=== PATIENT | female | born 1995 ===

== ENCOUNTER 2024-02-24 13:34 | Outpatient (AMB) | payer OTHER, SELFPAY ==
--- NOTE | 2024-02-24 13:41 | A.OFFPC_ITS ---
Vital Signs 02/24/24 13:42 Height 5 ft 0.5 in Weight 118 lb 6 oz BMI 22.7 BP 100/62 Blood Pressure Location Lt brachial Position Sitting Pulse 76 Pulse Source Pulse Oximeter Pulse Oximetry (%) 100 Oxygen Delivery Method Room Air Intake Visit Reasons: establish care Intake Note: Patient is a new patient here to establish care for Anxiety. Transferring care from Dr Rubalcava ([facility]). Medical records have been requested and have not received. Pt decline flu shot today. 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 Attendant Required: No Prn Physical Therapist: Not Required per policy Accompanied by: Self / Same As Patient Allergies Sulfa (Sulfonamide Antibiotics) Allergy (Intermediate, Verified 02/24/24 13:56) Hives sulfamethoxazole [From Bactrim] Allergy (Intermediate, Verified 02/24/24 13:56) Hives trimethoprim [From Bactrim] Allergy (Intermediate, Verified 02/24/24 13:56) Hives Medication List - Last Reconciled 02/24/24 by Awilda Sanchez PA-C No Known Home Meds Tobacco use date assessed: 02/24/24 Dental Screening Dental Screen Date: 02/24/24 Did you have a dental visit in the last 12 months?: Yes Did you have a dental problem in the last 6 months where you did not have access to dental care?: No Was dental information given to patient?: Patient has dentist HPI establish care HPI Details 28-year-old female coming to the office for the 1st time. Patient was previously being seen by [facility] and we will last seen in 2022. She follows with Siria [facility]liff for routine gynecological care and has been up-to-date on her Pap smears and has a history of abnormal Pap smears. She has a history of depression anxiety and has previously had a trach counselor in the past which he did not find helpful. She has tried sertraline, Wellbutrin, citalopram in the past but did not find these medications helpful or did not like the side effects. She feels her depression and anxiety we will affect her relationships and her work and would like to try something for her symptoms. She also mentions having an issue with her toenail after using acrylic nails. [facility] Surgical History History of gastric surgery History of 2 sections Family History Maternal Grandfather Leukemia Social History Housing: Apartment Alcohol intake: current Alcohol intake frequency: holidays/special occasions only Patient Tobacco Use Status: Never used Tobacco e-Cigarette/Vaping Use: Never Used Second Hand Smoke Exposure: No service: No Current occupational status: employed Current occupation: [employer] Cognitive needs: No Hearing needs: No Vision needs: Yes (Glasses) Female Reproductive History Menstrual control method: none Total pregnancies: 2 Full term: 2 History of abnormal pap smear: Yes Questionnaire PHQ-9 Over the last 2 weeks, how often have you been bothered by any of the following problems? 1. Little interest or pleasure in doing things: several days 2. Feeling down, depressed, or hopeless: several days 3. Trouble falling or staying asleep, or sleeping too much: more than half the days 4. Feeling tired or having little energy: several days 5. Poor appetite or overeating: not at all 6. Feeling bad about yourself - or that you are a failure or have let yourself or your family down: several days 7. Trouble concentrating on things, such as reading the newspaper or watching television: more than half the days 8. Moving or speaking so slowly that other people could have noticed. Or the opposite - being so fidgety or restless that you have been moving around a lot more than usual: not at all 9. Thoughts that you would be better off or of hurting yourself in some way: not at all Total score: 8 Depression Screening Interpretation: Positive Depression Screening Follow-up: Existing condition and New Medication prescribed Depression Screening Done: Yes Source: Developed by Drs. Jay Vergara, Chante Bhat, Bart Spangler and colleagues, with an educational ansley from [employer]. Thrive Questionnaire Date Thrive assessed: 02/24/24 I am a: Patient What is your living situation today?: I have a steady place to live Within the past 12 months, did the food you bought not last and you didn't have the money to get more?: Never true Within the past 12 months, did you worry whether your food would run out before you got money to buy more?: Never true Do you have trouble paying for medicines?: No Do you have trouble getting transportation to medical appointments?: No Do you have trouble paying your heating and electricity bill?: No Do you have trouble taking care of your child, family member or friend?: No Do you have trouble with day-to-day activities such as bathing, preparing meals, shopping, managing finances, etc.?: No Are you currently unemployed and looking for a job?: No Are you interested in more education?: Yes Please select the resources that you would like help with: None Currently or been in a relationship where the following occur: I choose not to answer THRIVE Score: 0 AUDIT C Alcohol Use Questionnaire (AUDIT-C) 1. How often do you have a drink containing alcohol?: Monthly or less 2. How many drinks containing alcohol do you have on a typical day when you are drinking?: 1 or 2 3. How often do you have six or more drinks on one occasion?: Never Total Score: 1 BARBARA-7 AMB Questionnaire BARBARA-7 Date BARBARA - 7 assessed: 02/24/24 Feeling nervous, anxious, or on edge: 1 = Several days Not being able to stop or control worryin = Several days Worrying too much about different things: 1 = Several days Trouble relaxin = Not at all Being so restless that it is hard to sit still: 0 = Not at all Becoming easily annoyed or irritable: 1 = Several days Feeling afraid as if something awful might happen: 0 = Not at all Total BARBARA-7 score (0-4 normal; 5-9 mild; 10-14 moderate; 15-21 severe): 4 Source: Developed by Drs. Jay Vergara, Chante Bhat, Bart Spangler and colleagues, with an educational ansley from [employer]. BARBARA-7 Assessment Billing BARBARA-7 Assessment Tool: BARBARA-7 Assessment 12812 Review of Systems Const Denies body aches, Denies chills, Denies fever(s), Denies headache(s) and Denies poor appetite Eyes Reports no additional complaints and Reports requires corrective lenses ENT Denies dysphagia, Denies dizziness, Denies headache(s) and Denies odynophagia Card Denies chest pain, Denies syncope, Denies edema, Denies irregular heart rhythm, Denies lightheadedness and Denies dyspnea Resp Denies cough and Denies dyspnea GI Denies abdominal pain, Denies constipation, Denies dysphagia, Denies diarrhea, Denies nausea, Denies odynophagia and Denies vomiting Reports no additional complaints Musc Reports no additional complaints and Denies abnormal gait Skin/Breast Reports system reviewed and no additional complaints, except as documented Neuro Denies abnormal gait, Denies dizziness, Denies syncope and Denies headache(s) Psych Reports no additional complaints Physical exam (Primary Care) Vital Signs: Last Vital Signs Pulse 76 02/24/24 13:42 BP 100/62 02/24/24 13:42 Pulse Ox 100 02/24/24 13:42 Oxygen Delivery Method Room Air 02/24/24 13:42 BMI result Body Mass Index 22.7 Tobacco/Smoking Status: Tobacco use Status Tobacco use date assessed 02/24/24 02/24/24 13:47 Patient Tobacco Use Status Never used Tobacco 02/24/24 13:50 e-Cigarette/Vaping Use Never Used 02/24/24 13:50 PHQ-9: PHQ-9 Score PHQ-9: Total score 8 02/24/24 14:01 Depression Screening Interpretation: Positive Depression Screening Follow-up: Existing condition and New Medication prescribed Thrive Assessment: Date of Thrive Assessment Date Thrive assessed 02/24/24 02/24/24 13:47 Currently or been in a relationship where the following occur: I choose not to answer Const General: cooperative, healthy appearing, comfortable and no acute distress Orientation/consciousness: patient oriented x3 HENMT Head: Yes normocephalic Ears: hearing grossly normal bilaterally General nose exam: Normal external nose present Eyes General: appearance normal, both eyes and all related structures Conjunctivae: conjunctivae normal Neck Neck: Yes full ROM and Yes no lymphadenopathy Resp Effort & Inspection: normal respiratory effort Auscultation: clear to auscultation bilaterally, no crackles, no rales, no rhonchi and no wheezes Cardio Rate: regular rate Rhythm: regular rhythm Skin General skin exam: no rashes or lesions noted Neuro General: patient oriented x3 Gait exam (Neuro): Normal gait present Extrem General: Yes normal to inspection, Yes full ROM and No edema Psych Affect: normal affect Attitude: cooperative Insight: Good insight present (Psych) Judgement: Good judgement present (Psych) Coding Level of Care Code New Pt Level 4 (82952) Diagnoses Anxiety F41.9 Depression F32.A Toenail deformity L60.8 Abnormal Pap smear of cervix R87.619 Additional Codes BARBARA-7 Assessment Billing - BARBARA-7 Assessment Tool: BARBARA-7 Assessment 91655 ([id number]) Assessment & Plan Assessment & Plan (1) Anxiety: Code(s): F41.9 - Anxiety disorder, unspecified Category: Medical Plan: Patient has history of anxiety and depression declining counseling at this time would like to try a medication the avoid SSRIs. We will try trazodone nightly f or anxiety and depression as well as sleep. Follow up in 3 months (2) Depression: Code(s): F32.A - Depression, unspecified Category: Medical Plan: Patient has history of anxiety and depression declining counseling at this time would like to try a medication the avoid SSRIs. We will try trazodone nightly for anxiety and depression as well as sleep. Follow up in 3 months (3) Toenail deformity: Code(s): L60.8 - Other nail disorders Category: Medical Plan: Toenail does not look infected at this time and no evidence of fungal infection. Continue to monitor for now. (4) Abnormal Pap smear of cervix: Code(s): R87.619 - Unspecified abnormal cytological findings in specimens from cervix uteri Category: Medical Plan: Patient has a history of abnormal Pap smears we will request results from [facility] and continue to follow with gynecology. Plan Ordered for updated blood work and we will see patient in 3 months for annual physical. This note was constructed using voice recognition software. While every effort has been made to ensure accuracy and inside sales coordinator, still areas may have been included sometimes these areas may affect the content or meeting of the given symptoms. Total time spent caring for the patient today was 30 minutes. This includes time spent before the visit reviewing the chart, time spent during the visit, and time spent after the visit and documentation. Orders: Orders Comprehensive Met. Panel Today Z00.00 - Encounter for general adult medical examination without abnormal findings Complete Blood Count Auto Diff Today Z00.00 - Encounter for general adult medical examination without abnormal findings TSH reflex Free T4 Today Z00.00 - Encounter for general adult medical examination without abnormal findings Free T4 (Free Thyroxine) Today Z00.00 - Encounter for general adult medical examination without abnormal findings Vitamin B12 and Folate Today Z00.00 - Encounter for general adult medical examination without abnormal findings Vitamin D 25-OH Total Today Z00.00 - Encounter for general adult medical exa mination without abnormal findings Lipid Panel Today E78.00 - Pure hypercholesterolemia, unspecified Medications: New trazodone 50 mg PO BEDTIME 30 tabs 2RF
[2024-02-24 13:42] VITALS: BP 100/62; PULSE 76; O2SAT 100; BMI 22.7
== END 2024-02-24 14:15 | disposition home or self-care (01) ==
DX: F41.9 Anxiety disorder, unspecified (principal); F32.A Depression, unspecified; L60.8 Other nail disorders; R87.619 Unspecified abnormal cytological findings in specimens from cervix uteri

== ENCOUNTER → 2024-02-24 13:34 | Outpatient (BNVA) | payer OTHER, SELFPAY | DX: F41.9 Anxiety disorder, unspecified (principal); F32.A Depression, unspecified; L60.8 Other nail disorders; R87.619 Unspecified abnormal cytological findings in specimens from cervix uteri | CPT/HCPCS: 96127 ==

== ENCOUNTER 2024-03-09 08:28 | Outpatient (REF) | payer OTHER, SELFPAY ==
[2024-03-09 10:18] LABS: MANUAL DIFF FLAG NO
[2024-03-09 10:25] LABS: Basophils Percent Auto 0.5 % (0-2); Eosinophils Absolute Auto 0.3 X10*3/uL (0.0-0.4); Hematocrit 39.2 % (37.0-47.0); Hemoglobin 13.7 g/dl (12.0-16.0); Imm Gran Abs Auto 0.02 X10*3/uL (0.00-0.03); Imm Gran Pct Auto 0.3 % (0.0-0.4); Lymphocytes Absolute Auto 1.9 X10*3/uL (1.2-4.9); Lymphocytes Percent Auto 29.3 % (20-40); Mean Corpuscular HGB Conc 34.9 g/dl (31.0-35.0); Mean Corpuscular Volume 91.6 fL (80.0-98.0); Mean Platelet Volume 11.5 fL (9.4-12.3); Monocytes Absolute Auto 0.3 X10*3/uL (0.1-1.2); Neutrophils Percent Auto 61.9 % (45-73); Platelet Count 287 X10*3/uL (160-400); Red Blood Count 4.28 X10*6/uL (4.20-5.50); Red Cell Distribution Width 13.1 % (11.0-16.0); White Blood Count 6.5 X10*3/uL (4.8-10.8)
[2024-03-09 11:37] LABS: Folate 11.8 ng/mL (> or = 4.0); Vitamin B12 270 pg/mL (200-900)
[2024-03-09 14:50] LABS: Alanine Aminotransferase 11 U/L (0-31); Albumin Level 4.4 g/dL (3.5-5.0); Alkaline Phosphatase 47 U/L (39-117); Anion Gap 12 (12-20); Aspartate Amino Transferase 19 U/L (5-31); Blood Urea Nitrogen 10 mg/dL (9-16); Calcium 9.5 mg/dL (8.4-10.2); Carbon Dioxide 25 mmol/L (22-29); Chloride 107 mmol/L (96-108); Cholesterol 183 mg/dL (<200); Estimated Glomerular Filt Rate > 60; Glucose Random 77 mg/dL (60-115); HDL Cholesterol 60 mg/dL (>40); LDL Cholesterol Calculated 106 mg/dL (<100); Potassium 4.2 mmol/L (3.3-5.1); Sodium 140 mmol/L (135-145); Total Protein 7.5 g/dL (6.5-8.0); Triglycerides 87 mg/dL (<150)
[2024-03-09 15:14] LABS: Free T4 (Free Thyroxine) 0.98 ng/dL (0.71-1.85); Vitamin D 25-OH Total 21.8 ng/mL (>30)
== END 2024-03-09 08:29 | disposition home or self-care (01) ==
LOC: HO.HMGCLDS 08:28
DX: Z00.00 Encounter for general adult medical examination without abnormal findings (principal); E78.00 Pure hypercholesterolemia, unspecified
CPT/HCPCS: 36415; 80053; 80061; 82306; 82607; 82746; 84439; 84443; 85025

== ENCOUNTER 2024-07-26 13:05 | Outpatient (AMB) | payer OTHER, SELFPAY ==
--- OUTSIDE RECORDS SUMMARY | 2024-07-26 15:14 | XMS_ITS ---
Author Name [facility] Organization Unknown Care Team Organization Name Specialty Phone Email Start Date End [facility] NO PCP Primary Care 12/29/2023
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
== END 2024-07-26 13:51 | disposition home or self-care (01) ==
LOC: HO.HOP 13:05
PROVIDERS: Visit Provider Clinical Nurse Specialist Psychiatric/Mental Health, Adult
DX: F32.A Depression, unspecified (principal); F41.9 Anxiety disorder, unspecified
CPT/HCPCS: 99203

== ENCOUNTER → 2024-07-26 13:05 | Outpatient (BNVA) | payer OTHER, SELFPAY | PROVIDERS: Visit Provider Clinical Nurse Specialist Psychiatric/Mental Health, Adult | DX: F32.A Depression, unspecified (principal); F41.9 Anxiety disorder, unspecified | CPT/HCPCS: 99202 ==

== ENCOUNTER 2024-08-06 16:09 | Outpatient (AMB) | payer OTHER, SELFPAY ==
--- OUTSIDE RECORDS SUMMARY | 2024-08-06 17:32 | XMS_ITS | Clinical Summary ---
Author Organization [address] [facility] Address [address] [place] [address] Phone Care Team Providers Care Educational Interpreter Name Role Phone Vilma Mishra MD Primary Care Provider [phone] Allergies Active Allergy Reactions Criticality Noted Date Comments [place] 08/07/2021 Other Reaction(s): Rash/Dermatitis Apple Swelling 05/02/2019 Fresh forms only, can drink apple juice- OAS Other 08/07/2021 Seasonal Sulfamethoxazole-Trimethop rim 08/15/2017 Medications multivitamin (MULTIPLE VITAMINS ORAL) Take by mouth. Active EPINEPHrine (EpiPen 2-Miki) 0.3 mg/0.3 mL injection Inject 1 Device as directed as needed (anaphylaxis) . Use as directed 11/18/2020 Active Active Problems Problem Noted Date Diagnosed Date Vitamin D deficiency 01/30/2024 Allergic conjunctivitis of both eyes 05/02/2019 Perennial allergic rhinitis 05/02/2019 Pollen-food allergy 05/02/2019 Asymptomatic microscopic hematuria 11/25/2017 Anxiety 08/15/2017 Constipation 08/15/2017 Immunizations Name Administration Dates Next Due DTaP (Infanrix) 6wks to less than 7yo ,03/27/1996,1994,09/30,1994 [id number] (Pentacel) 2mo to less than 5yo 01/19/1999,03/27/1996,1994,09/25,1994 HPV, Quadrivalent 06/24/2008,01/03/2007,06/11/19 07 Hepatitis B Pediatric (Enger ix B; Recombivax HB) to less than 20 yo 03/08/1995,1994,1994 IPV Inactivated polio (Ipol) 6wks and older 03/27/1996,1994,1994,07/28 Influenza Quadravalent, MDCK , 0.5ml, preservative free (Flucelvax) 6mo and older 12/28/2018,11/24/2017 Measles 01/21/2015 Meningococcal MCV4P 06/24/2008 Moderna SARS-CoV-2 COVID-19, mRNA, LNP-S, preservative free 11/07/2020,10/02/2020 Mumps 01/21/2015 Rubella 01/21/2015 Tdap Tetanus diptheria acell ular pertussis (Boostrix; Adacel) 7yo and older 11/24/2017,06/10/2006 Varicella live (Varivax) 12m o and older 01/21/2015,11/04/2009,07/14/1995 Surgical History Surgery Date Site/Laterality Comments SECTION 07/03/2012 PROCEDURE: HISTORICAL Medical History Medical History Date Comments Anxiety 08/15/2017 DX:Anxiety History of abnormal cervical Pap smear 09/30/2017 DX:History of abnormal cervical Pap smear; COMMENT: ANGÉLICA 1; LGSIL 11/25/2016 Class 1 obesity due to exces s calories without serious comorbidity with body mass index (BMI) of 34.0 to 34.9 in adult 08/15/2017 DX:Class 1 obesity due to ex cess calories without serious comorbidity with body mass index (BMI) of 34.0 to 34.9 in adult Constipation 08/15/2017 DX:Constipation Vitamin D deficiency DX:Vitamin D deficiency Class 1 obesity due to exces s calories with body mass index (BMI) of 34.0 to 34.9 in adult 08/15/2017 DX:Class 1 obesity due to ex cess calories with body mass index (BMI) of 34.0 to 34.9 in adult Family History Medical History Relation Name Comments Other: seasonal allergies Brother 1 No Known Problems Brother 2 No Known Problems Daughter Diabetes Father Arthritis, CAD, [place], hypercholesterolemia, depression, anxiety, hypertension Leukemia Maternal Grandfather Diabetes Maternal Grandmother Diabetes Mother Hypertension, hypercholesterolemia, depression, arthritis, migraines No Known Problems Paternal Grandfather Diabetes Paternal Grandmother No Known Problems Sister Colon cancer Uncle maternal Relation Name Status Comments Brother 1 Alive Brother 2 Alive Daughter Alive Father Alive Maternal Grandfather Maternal Grandmother Alive Mother Alive Paternal Grandfather Alive Paternal Grandmother Sister Alive Uncle Alive Social History Tobacco Use Types Packs/Day Years Used Date Smoking Tobacco: Never Smokeless Tobacco: Never Alcohol Use Standard Drinks/Week Comments Yes 0 (1 standard drink = 0.6 oz pur e alcohol) Comments Unknown Sex and Gender Information Value Date Recorded Sex Assigned at Not on file Legal Sex Female 4:52 AM EST Gender Identity Not on file Sexual Orientation Not on file Obstetrics History Last Filed Vital Signs Vital Sign Reading Time Taken Comments Blood Pressure 88/64 10/11/2023 10:25 AM EDT Pulse 68 10/11/2023 10:25 AM EDT Temperature - - Respiratory Rate - - Oxygen Saturation - - Inhaled Oxygen Concentration - - Weight 55.3 kg (122 lb) 10/11/2023 10:25 AM EDT Height 152.4 cm (5') 10/11/2023 10:25 AM EDT Body Mass Index 23.83 10/11/2023 10:25 AM EDT Plan of Treatment Health Maintenance Due Date Last Done Comments HIV Screening 01/17/2022 Hepatitis C Screening 01/17/2022 Social Influencers of Health Screening 01/17/2022 COVID-19 Vaccine ( season) 2023 11/07/2020, 10/02/2020 Depression Screening 05/19/2024 05/20/2023 Influenza Vaccine (Season Ended) 2024 12/28/2018, 11/24/2017 Cervical Cancer Screening: HPV 07/24/2025 07/24/2020 Cholesterol Screening (Lipid Panel) 06/16/2026 06/16/2021 DTaP,Tdap,and Td Vaccines (8 - Td or Tdap) 11/25/2027 11/24/2017, 06/10/2006, 01/19/1999, Additional history exists Hepatitis B Vaccines Completed 03/08/1995, 1994, 1994 HIB Vaccines Completed 01/19/1999, 03/17, 1994, Additional history exists IPV Vaccines Completed 01/19/1999, 03/17, 03/27/1996, Additional history exists HPV Vaccines Completed 06/24/2008, 12/16, 06/10/2006 Meningococcal ACWY Vaccine Aged Out 06/24/2008 N o longer eligible based on patient's age to complete this topic Varicella Vaccines Completed 01/21/2015, 0 11/04/2009, 07/14/1995 Hepatitis A Vaccines Aged Out No long er eligible based on patient's age to complete this topic MMR Vaccines Aged Out No longer eligi ble based on patient's age to complete this topic Meningococcal B Vaccine Aged Out No l onger eligible based on patient's age to complete this topic Pneumococcal Vaccine: Pediatrics (0 to 5 Years) and At-Risk Patients (6 to 64 Years) Aged Out No longer eligible based on patient's age to complete this topic RSV Immunization Patients Under 20 months Aged Out No longer eligible based on patient's age to complete this topic Procedures Procedure Name Priority Date/Time Associated Diagnosis Comments DEPRESSION SCREENING Routine 05/20/2023 LIPID PANEL Routine 06/16/2021 HPV Routine 07/24/2020 from Last 3 Months or Most Recently Relevant to Health Maintenance Results * Depression Screening (05/20/2023) [facility] Depression Screening abstracted [facility] Provider HEALTH MAINTENANCE Final Result * Lipid panel (06/16/2021) [facility] LDL/HDL Ratio 4 0 - 4 Triglycerides 142 0 - 150 mg/dL Cholesterol 169 0 - 200 mg/dL HDL 44 >=40 mg/dL LDL Cholesterol 97 0 - 100 mg/dL Blood Venous blood specimen / Unknown Historical Provider LAB BLOOD ORDERABLES Patsy l Result * Cervical Cancer Screening: HPV (07/24/2020) [facility] Cervical Cancer Screening: HPV no interpretation , abstracted [facility] Provider HEALTH MAINTENANCE Final Result from Last 3 Months or Most Recently Relevant to Health Maintenance Care Teams Educational Interpreter Relationship Specialty Start Date End Date Vilma Mishra MD [address] [place] [id number] PCP - General 12/23/21
--- NOTE | 2024-08-12 08:29 | A.OFFPSYCH_ITS ---
Intake Intake Visit Reasons: f/u consultation Intake Note: 08/06/24 Slicing Machine Tender Required: No Allergies Sulfa (Sulfonamide Antibiotics) Allergy (Intermediate, Verified 02/24/24 13:56) Hives sulfamethoxazole (From Bactrim) Allergy (Intermediate, Verified 02/24/24 13:56) Hives trimethoprim (From Bactrim) Allergy (Intermediate, Verified 02/24/24 13:56) Hives Medication List - Last Reconciled 08/12/24 by Justine Castellano APRN cholecalciferol (vitamin D3) 25 mcg PO DAILY escitalopram oxalate 10 mg PO DAILY trazodone 50 mg PO BEDTIME HPI- Psychiatric Chief Complaint: f/u consultation Intake Note: PHQ-9 17 BARBARA-7 5 HPI Narrative: Pt requested appt today due to family crisis. Escitalopram 10 mg initiated 07/26/24. Pt reports feeling some improvement and tolerating med without SE. She reports less irritability and feeling calmer overall. The primary issue she reports concern about today is her daughter, age 12. Daughter returned from a weekend with grandparents with superficial cuts to her forearms (she shows pictures). She told pt these were cat scratches. Pt reports daughter has a cousin who cuts and believes this action was influenced by her cousin. Pt also reports daughter has had issues with a class and to avoid attending this class has been to the school counselor 23 times last semester to avoid the class and social issues associated with the class. Daughter's pedi team has not returned calls from pt asking for direction. As a result, pt has been unable to work, do school work, is unable to focus, is feeling more anxious and worried. Partner is not a support at this time as he has just lost his job as a livestock trucker due to an MVA. Pt asks for help in finding appropriate intervention for her daughter. She talked through concerns, daughter's history. She will take her daughter to [facility] tomorrow for [id number] [facility].. This facility is close to her home and pt is aware of the location. Past Psychiatric History: IP: Denies OP: Hx of psychotherapy via telehealth-not helpful Meds: a few trials reported with PCP- Sertraline, Citalopram, Wellbutrin. Citalopram helped Subjective Subjective Subjective Medication Compliance: Yes Side effects from medications: No Review of Systems Medical Review of Systems: unchanged Review of Systems Review of Systems Denies Mental Status Exam Mental Status Exam Patient Appearance: Appropriate Patient Orientation: Person, Place, Time and Situation Level of Consciousness: Alert Patient Behavior: Talkative, Good Eye Contact and Crying Mood Description: Depressed, Anxious and Sad Affect Description: Anxious and Flat Patient Cognition Impaired: No Ability to Follow Directions: Excellent Speech Pattern: Spontaneous Speech Memory Description: Intact Hallucinations: None Delusions: Not Present Thought Process: Intact and Rumination Thought Content: positive for Intact and positive for Suicidal Ideation (denies) Depressive Symptoms: Increased Anxiety and Feelings of Guilt Judgement: Good Assessment and Plan Assessment & Plan (1) Anxiety: Status: Acute Code(s): F41.9 - Anxiety disorder, unspecified (2) Depression: Status: Acute Code(s): F32.A - Depression, unspecified Plan Continue Lexapro. Pt will take her daughter to [facility] in the a.m. for urgent evaluation for services. Counseling and coordination of Care Pt. Self Management counseling: Maintenance-social rhythm, Mindfulness, General coping skills and Parenting skills Diagnosis and Prognosis Counseling: Adequacy of current interventions Details: I spent [] minutes reviewing the record, seeing the patient and documenting in the medical record. Counseling provided to the patient/caregiver as outlined below. Addressed patient/caregiver concerns regarding current medication regime including effective adherence. Addressed patient/caregiver concerns regarding diagnosis and prognosis including accuracy of diagnosis, prognosis over time, impact of diagnosis. Addressed patient/caregiver concerns regarding impact of recent stressors. [facility] Surgical History History of gastric surgery History of 2 sections Family History Maternal Grandfather Leukemia Social History Housing: Apartment Alcohol intake: current Alcohol intake frequency: holidays/special occasions only Patient Tobacco Use Status: Never used Tobacco e-Cigarette/Vaping Use: Never Used Second Hand Smoke Exposure: No service: No Current occupational status: employed Current occupation: [employer] Cognitive needs: No Hearing needs: No Vision needs: Yes (Glasses) Social History: Born in [place], 3 siblings, a sister in [place], 2 brothers in [place]. 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 She is currently in [facility] for nursing/respiratory programs. 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 Family History- mother depressed, father with anxiety. Both use medication Substance History: Denies Trauma History: Affirms Coding Level of Care Code Est Pt Level 3 (60304) Diagnoses Anxiety F41.9 Depression F32.A
== END 2024-08-06 16:40 | disposition home or self-care (01) ==
LOC: HO.HOP 16:09
PROVIDERS: Visit Provider Clinical Nurse Specialist Psychiatric/Mental Health, Adult
DX: F41.9 Anxiety disorder, unspecified (principal); F32.A Depression, unspecified
CPT/HCPCS: 99213

== ENCOUNTER → 2024-08-06 16:09 | Outpatient (BNVA) | payer OTHER, SELFPAY | PROVIDERS: Visit Provider Clinical Nurse Specialist Psychiatric/Mental Health, Adult | DX: F32.A Depression, unspecified (principal); F41.9 Anxiety disorder, unspecified | CPT/HCPCS: 99212 ==

== ENCOUNTER 2024-08-30 13:19 | Outpatient (AMB) | payer OTHER, SELFPAY ==
--- OUTSIDE RECORDS SUMMARY | 2024-08-30 13:46 | XMS_ITS ---
Author Name [facility] Organization Unknown Care Team Organization Name Specialty Phone Email Start Date End [facility] NO PCP Primary Care 12/29/2023
--- OUTSIDE RECORDS SUMMARY | 2024-08-30 13:46 | XMS_ITS | Clinical Summary ---
Author Organization [address] [facility] Address [address] [place] [address] Phone Care Team Providers Care Software Engineer Intern Name Role Phone Vilma Mishra MD Primary Care Provider [phone] Allergies Active Allergy Reactions Criticality Noted Date Comments [place] 08/07/2021 Other Reaction(s): Rash/Dermatitis Apple Swelling 05/02/2019 [...] (Infanrix) 6wks to less than 7yo ,03/27/1996,1994,09/30,1994 [id number] (Pentacel) 2mo to less than 5yo 01/19/1999,03/27/1996,1994,09/25,1994 [...] Known Problems Daughter Diabetes Father Arthritis, CAD, [place], hypercholesterolemia, depression, anxiety, hypertension Leukemia Maternal Grandfather [...] 10/02/2020 Depression Screening 05/19/2024 05/20/2023 Influenza Vaccine (#1) 2024 12/28/2018, 2017 Cervical Cancer Screening: HPV 07/24/2025 07/24/2020 Cholesterol [...] 5 Years) and At-Risk Patients (6 to 49 Years) Aged Out No longer eligible based [...] Health Maintenance Results * Depression Screening (05/20/2023) [facility] Depression Screening abstracted [facility] Provider HEALTH MAINTENANCE Final Result * Lipid panel (06/16/2021) [facility] LDL/HDL Ratio 4 0 - 4 Triglycerides 142 0 - 150 mg/dL Cholesterol 169 0 - 200 mg/dL HDL 44 >=40 mg/dL LDL Cholesterol 97 0 - 100 mg/dL Blood Venous blood specimen / Unknown Historical Provider LAB BLOOD ORDERABLES Patsy l Result * Cervical Cancer Screening: HPV (07/24/2020) [facility] Cervical Cancer Screening: HPV no interpretation , abstracted [facility] Provider HEALTH MAINTENANCE Final Result from Last 3 Months or Most Recently Relevant to Health Maintenance Care Teams Software Engineer Intern Relationship Specialty Start Date End Date Vilma Mishra MD [address] [place] [id number] PCP - General 12/23/21
--- OUTSIDE RECORDS SUMMARY | 2024-08-30 13:46 | XMS_ITS | Clinical Summary ---
Author Organization [employer] Address [address] [place] [address] 7 [place] [address] Care Team Providers Care Public Health Officer Name Role Phone Unavailable Primary Care Provider Unavailabl e Social History Tobacco Use Types Packs/Day Years Used Date Smoking Tobacco: Never Assessed Comments Unknown Sex and Gender Information Value Date Recorded Sex Assigned at Female 12/14/2021 10:17 AM EDT Legal Sex Female 10:17 AM EDT Gender Identity Not on file Sexual Orientation Not on file Plan of Treatment Health Maintenance Due Date Last Done Comments Depression Screening 1994 Disability Screening 1994 Alcohol/Substance Use Screening 2006 Tobacco Screening 2006 Family Planning (PISQ) 2009 HPV Vaccines (1 - 3-dose series) 2009 Pap Smear 06/09/2015 COVID-19 Vaccine ( - 2023-2 5 season) 2023 11/07/2020, 10/02/2020 Cervical Cancer Screening 2024 HPV/Cotest 2024 Influenza Vaccine (#1) 2024 DTaP/Tdap/Td Vaccines (2 - T d or Tdap) 11/25/2027 11/24/2017 Zoster Vaccines (1 of 2) 2044 RSV Patients and Patients Aged 60 years or older (1 - 1-dose 75+ series) 2069 Hepatitis B Vaccines Completed 03/08/1995, 1994, 1994 HIB Vaccines Aged Out No longer eligi ble based on patient's age to complete this topic Hepatitis A Vaccines Aged Out No long er eligible based on patient's age to complete this topic IPV Vaccines Aged Out No longer eligi ble based on patient's age to complete this topic Meningococcal B Vaccine Aged Out No l onger eligible based on patient's age to complete this topic Meningococcal Vaccine Aged Out No gerardo haresh eligible based on patient's age to complete this topic Pneumococcal Vaccine: Pediatrics (0 to 5 Years) and At-Risk Patients (6 to 49) Years Aged Out No longer eligible b ased on patient's age to complete this topic RSV under 20 months Aged Out No longe r eligible based on patient's age to complete this topic Rotavirus Vaccines Aged Out No longer eligible based on patient's age to complete this topic
--- OUTSIDE RECORDS SUMMARY | 2024-08-30 13:46 | XMS_ITS | Data Portability ---
Author Organization [facility] [address] Address [address] [place] [address] Assessment No assessment recorded. Plan of Treatment Reminders Order Date Submit Date Provider Last Modified By Organization Details Last Modified Time Details Appointments None recorded. Lab hepatitis B surface Ab, quantitativ e, serum 2022 023 [facility], [facility] [place], [address], 3 08:08:38 measles + mumps + rubella virus IgG panel, QN, serum or plasma 2022 023 [facility], [address] [place], [address], 3 08:08:37 varicella zoster virus IgG Ab, QN, IA, serum 2022 023 [facility], [facility] [place], [address], 3 08:08:38 Referral None recorded. Procedures None recorded. Surgeries None recorded. Imaging None recorded. Medication Orders Aplisol 5 tub. unit/0.1 mL intradermal injection solution 2022 023 [email or web address] Not available 3 13:36:19 Patient TargetsNo targets recorded. Patient InstructionsNo instructions recorded. Reason for Referral None Reported. Results Created Date Observation Date Name Description Value Unit Range Abnormal Flag Note LastModifiedBy Organization Detail LastModifiedTime 06/23/19 23 06/23/2022 MEASL ES/MU MPS/R UBELL A IMMUN ITY rubella antibodies, IgG 1.19 index immune >0.99 Non-i mmune <0.90 Equiv ocal 0.90 - 0.99 Immun e >0.99 Not Available [facility] ([facility]) [address] [facility], [place], [address], 06/23/2022 08:08:37 06/23/19 23 06/23/2022 MEASL ES/MU MPS/R UBELL A IMMUN ITY measles antibodies, IgG 155.0 AU/mL immune >16.4 Negat inessa <13.5 Equiv ocal 13.5 - 16.4 Posit inessa >16.4 Prese nce of antib odies to Rubeo la is presu mptiv e evide nce of immun ity excep t when acute infec tion is suspe cted. Not Available [facility] ([facility]) [address] [facility], [place], [address], 06/23/2022 08:08:37 06/23/1906/23/2022 MEASL ES/MU MPS/R UBELL A IMMUN ITY mumps abs, IgG 100.0 AU/mL immune >10.9 Negat inessa <9.0 Equiv ocal 9.0 - 10.9 Posit inessa >10.9 A posit inessa resul t gener ally indic ates past expos ure to Mumps virus or previ ous vacci natio n. Not Available [facility] ([facility]) [address] [place], [address], 06/23/2022 08:08:37 06/23/1906/23/2022 HEPAT ITIS B SURF AB QUANT hepatitis B surf Ab quant 48.8 mIU/m L immuni ty>9.9 Statu s of Immun ity Anti- HBs Level ----- ----- ----- --- ----- ----- ---- Incon siste nt with Immun ity 0.0 - 9.9 Consi stent with Immun ity >9.9 Not Available [facility] ([facility]) [address] [facility], [place], [address], 06/23/2022 08:08:38 06/23/19 23 06/23/2022 VARIC TYRELL- ZOSTE R V AB, IGG varicella zoster IgG 2150 index immune >165 Negat inessa <135 Equiv ocal 135 - 165 Posit inessa >165 A posit inessa resul t gener ally indic ates expos ure to the patho gen or admin istra tion of speci fic immun oglob ulins , but it is not indic ation of activ e infec tion or stage of disea se. Not Available [facility] ([facility]) [address] [facility], [place], [address], 06/23/2022 08:08:38 Result Notes None recorded. Procedures Surgical History Date Name Laterality Status Provider Name and Address Organization Details Recorded Time 08/05/19 23 [facility] Rapid 5 or 10 panel Template completed MARYANN TEJADA PA - [facility] 08/04/2022 12:35:21 06/23/19 23 [facility] Send Out Template NON DOT completed Floresita Roberto PA - [facility] 06/22/2022 13:17:14 06/23/19 23 PSC - Venipuncture Template completed Floresita Campbell Hall PA - [facility] 06/22/2022 12:12:45 Imaging Results None recorded. Procedure Notes None recorded. Medical Equipment None Reported. Medications Name Sig Start Date Stop Date Status Note LastModified by Organization Details LastModified Time Aplisol 5 tub. unit/0.1 mL intradermal injection solution Inject 0.1 mL by intradermal route. 2022 active Not Available Not Available Not Avai lable Vitals None Recorded Social History None recorded. Functional Status None recorded. Mental Status None recorded. Family History Nothing Reported. Medical History No medical history recorded. Gynecological HistoryNo gynecological history recorded. Obstetrics History GPAL:G 0 P 0 0 0 0 Past Encounters Encounter ID Performer Location Encounter Start Date Encounter Closed Date Diagnosis/Indication Diagnosis SNOMED-CT Code Diagnosis ICD10 Code Diagnosis Note [id number] [address] [place] [address] 03/21/2020 08:08:13 03/21/2020 09:11:08 [id number] [address] [facility] [place] [address] 03/30/2017 14:09:46 03/30/2017 15:02:00 [id number] [place] [address] [place] [address] 06/22/2022 09:13:20 06/22/2022 13:37:46 Tuberculosis screening 221517882 Z11.1 History an d physical examination, occupation 103387392 Z02.1 History an d physical examination, pre-employment 412425820 Z02.1 [id number] [place] Luevano [place] [address] [place] [address] 08/04/2022 12:19:45 08/04/2022 13:21:47 History and physical examination, occupation 227380219 Z02.1 Health Concerns Section Related Observation LastModified by Organization Detai ls LastModified Time None Recorded Concern Status LastModified by Organization Details LastModified Time None Recorded Advance Directives Directive None Recorded Payers Insurance Date Sequence Insurance Name Policy Number Policy Logan Covered Member ID Logan Member ID Guarantor Name 08/04/2022 1 [facility] (O) [facility] Iqra Dewitt [id number] Iqra Dewitt 06/22/2022 OC-ESCREEN Iqra Dewitt [id number] Iqra Dewitt 08/04/2022 OC-ESCREEN Iqra Dewitt [facility] Iqra Dewitt OBGyn Episode No OBEpisode recorded.
--- NOTE | 2024-09-15 14:45 | A.OFFPSYCH_ITS ---
Intake Intake Visit Reasons: follow up Field Representative Required: No Allergies Sulfa (Sulfonamide Antibiotics) Allergy (Intermediate, Verified 02/24/24 13:56) Hives sulfamethoxazole (From Bactrim) Allergy (Intermediate, Verified 02/24/24 13:56) Hives trimethoprim (From Bactrim) Allergy (Intermediate, Verified 02/24/24 13:56) Hives Medication List - Last Reconciled 08/31/24 by Justine Castellano APRN cholecalciferol (vitamin D3) 25 mcg PO DAILY escitalopram oxalate 10 mg PO DAILY lamotrigine (Lamictal) 25 mg PO DAILY 30 days HPI- Psychiatric Chief Complaint: follow up Intake Note: 08/30/24: Iqra reports some improvement. 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 She has had some time off and believes this has also been helpful. Reports her daughter is at home, having stayed with her father for a period of time and they are communicating. Review of medications- Escitalopram 10 mg, Lamictal 25 mg will be ordered. PHQ-9 18 and ABRBARA-7 9 today. Will continue medicine titration as pt tolerated. HPI Past Psychiatric History: IP: Denies OP: Hx of psychotherapy via telehealth-not helpful Meds: a few trials reported with PCP- Sertraline, Citalopram, Wellbutrin. Citalopram helped Subjective Subjective Subjective Medication Compliance: Yes Side effects from medications: No Review of Systems Medical Review of Systems: unchanged Review of Systems Review of Systems Denies Mental Status Exam Mental Status Exam Patient Appearance: Appropriate Patient Orientation: Person, Place, Time and Situation Level of Consciousness: Alert Patient Behavior: Talkative Mood Description: Anxious Affect Description: Anxious Patient Cognition Impaired: No Ability to Follow Directions: Good Speech Pattern: Spontaneous Speech Memory Description: Intact Hallucinations: None Delusions: Not Present Thought Process: Rumination Thought Content: positive for Circumstantial, positive for Perseveration and positive for Suicidal Ideation (denies) Depressive Symptoms: Increased Anxiety Judgement: Good Assessment and Plan Assessment & Plan (1) Depression: Status: Acute Code(s): F32.A - Depression, unspecified (2) Anxiety: Status: Acute Code(s): F41.9 - Anxiety disorder, unspecified Plan Iqra reports med regime to be tolerated and with effect. Will continue titration as tolerated. She will begin a new job and believes this will be a benefit for stress management. She reports her daughter has returned home and although she remains very concerned about her they are commuicating and this she believes to be an improvement. Medications: New escitalopram oxalate 10 mg PO DAILY 30 tabs 0RF lamotrigine (Lamictal) 25 mg PO DAILY 30 tabs 0RF 30 days Refilled lamotrigine (Lamictal) 25 mg PO DAILY 30 tabs 0RF 30 days escitalopram oxalate 10 mg PO DAILY 30 tabs 0RF Counseling and coordination of Care Medication management counseling: Effectiveness, Side effects, Dosing range and Adherence Details: I spent [] minutes reviewing the record, seeing the patient and documenting in the medical record. Counseling provided to the patient/caregiver as outlined below. Addressed patient/caregiver concerns regarding current medication regime including effective adherence. Addressed patient/caregiver concerns regarding diagnosis and prognosis including accuracy of diagnosis, prognosis over time, impact of diagnosis. Addressed patient/caregiver concerns regarding impact of recent stressors. [facility] Surgical History History of gastric surgery History of 2 sections Family History Maternal Grandfather Leukemia Social History Housing: Apartment Alcohol intake: current Alcohol intake frequency: holidays/special occasions only Patient Tobacco Use Status: Never used Tobacco e-Cigarette/Vaping Use: Never Used Second Hand Smoke Exposure: No service: No Current occupational status: employed Current occupation: [employer] Cognitive needs: No Hearing needs: No Vision needs: Yes (Glasses) Social History: Born in [place], 3 siblings, a sister in [place], 2 brothers in [place]. 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 She is currently in [employer] for nursing/respiratory programs. 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 Family History- mother depressed, father with anxiety. Both use medication Substance History: Denies Trauma History: Affirms Coding Level of Care Code Est Pt Level 3 (62823) Diagnoses Depression F32.A Anxiety F41.9
== END 2024-08-30 13:49 | disposition home or self-care (01) ==
LOC: HO.HOP 13:19
PROVIDERS: Visit Provider Clinical Nurse Specialist Psychiatric/Mental Health, Adult
DX: F32.A Depression, unspecified (principal); F41.9 Anxiety disorder, unspecified
CPT/HCPCS: 99213

== ENCOUNTER → 2024-08-30 13:19 | Outpatient (BNVA) | payer OTHER, SELFPAY | PROVIDERS: Visit Provider Clinical Nurse Specialist Psychiatric/Mental Health, Adult | DX: F32.A Depression, unspecified (principal); F41.9 Anxiety disorder, unspecified; Z79.899 Other long term (current) drug therapy | CPT/HCPCS: 99212 ==

== ENCOUNTER 2024-09-27 14:05 | Outpatient (AMB) | payer OTHER, SELFPAY ==
--- NOTE | 2024-09-27 14:12 | A.OFFPC_ITS ---
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 Wood Required: No Accompanied by: Self / Same As Patient Allergies Sulfa (Sulfonamide Antibiotics) Allergy (Intermediate, Verified 09/27/24 14:22) Hives sulfamethoxazole (From Bactrim) Allergy (Intermediate, Verified 09/27/24 14:22) Hives trimethoprim (From Bactrim) Allergy (Intermediate, Verified 09/27/24 14:22) Hives Medication List - Last Reconciled 09/27/24 by Awilda Sanchez PA-C cholecalciferol (vitamin D3) 25 mcg PO DAILY escitalopram oxalate 10 mg PO DAILY escitalopram oxalate 10 mg PO DAILY lamotrigine (Lamictal) 25 mg PO DAILY 30 days lamotrigine (Lamictal) 25 mg PO DAILY 30 days Tobacco use date assessed: 09/27/24 Dental Screening Dental Screen Date: 09/27/24 Did you have a dental visit in the last 12 months?: Yes Did you have a dental problem in the last 6 months where you did not have access to dental care?: No Was dental information given to patient?: Patient has dentist HPI annual exam HPI Details 29-year-old female with past medical his tory of anxiety and depression last seen 02/2024 coming in for annual exam. In review of the notes, patient has been following with outpatient psych clinic last seen 08/30/2024 continued on Lexapro 10 mg and Lamictal 25 mg. Presenting with an annual wellness visit. The patient reports having acne scars on her back and inquires about treatment options. The patient has been managing anxiety and depression with Lexapro and Lamictal, prescribed by her psychiatrist. The patient reports a recurrent cyst that has been draining, with a history of marsupialization performed previously. The patient experiences a burning sensation during urination despite negative tests for infections and STDs. She believes it may be related to the draining cyst and is following with sales team member Pap smear: Xavi Le[facility] Vaccines: [facility] Surgical History History of gastric surgery History of 2 sections Family History Maternal Grandfather Leukemia Social History Housing: Apartment Alcohol intake: current Alcohol intake frequency: holidays/special occasions only Patient Tobacco Use Status: Never used Tobacco e-Cigarette/Vaping Use: Never Used Second Hand Smoke Exposure: No service: No Current occupational status: employed Current occupation: [employer] Cognitive needs: No Hearing needs: No Vision needs: Yes (Glasses) Questionnaire PHQ-9 Over the last 2 weeks, how often have you been bothered by any of the following problems? 1. Little interest or pleasure in doing things: several days 2. Feeling down, depressed, or hopeless: several days 3. Trouble falling or staying asleep, or sleeping too much: more than half the days 4. Feeling tired or having little energy: several days 5. Poor appetite or overeating: not at all 6. Feeling bad about yourself - or that you are a failure or have let yourself or your family down: several days 7. Trouble concentrating on things, such as reading the newspaper or watching television: more than half the days 8. Moving or speaking so slowly that other people could have noticed. Or the opposite - being so fidgety or restless that you have been moving around a lot more than usual: not at all 9. Thoughts that you would be better off or of hurting yourself in some way: not at all Total score: 8 Depression Screening Interpretation: Positive Depression Screening Follow-up: Existing condition and New Medication prescribed Depression Screening Done: Yes Source: Developed by Drs. Jay Vergara, Chante Bhat, Bart Spangler and colleagues, with an educational ansley from [employer]. Thrive Questionnaire Date Thrive assessed: 09/27/24 I am a: Patient What is your living situation today?: I have a steady place to live Within the past 12 months, did the food you bought not last and you didn't have the money to get more?: Never true Within the past 12 months, did you worry whether your food would run out before you got money to buy more?: Never true Do you have trouble paying for medicines?: No Do you have trouble getting transportation to medical appointments?: No Do you have trouble paying your heating and electricity bill?: No Do you have trouble taking care of your child, family member or friend?: No Do you have trouble with day-to-day activities such as bathing, preparing meals, shopping, managing finances, etc.?: No Are you currently unemployed and looking for a job?: No Are you interested in more education?: Yes Please select the resources that you would like help with: None Currently or been in a relationship where the following occur: I choose not to answer THRIVE Score: 0 BARBARA-7 AMB Questionnaire BARBARA-7 Date BARBARA - 7 assessed: 09/27/24 Feeling nervous, anxious, or on edge: 1 = Several days Not being able to stop or control worryin = Several days Worrying too much about different things: 1 = Several days Trouble relaxin = Not at all Being so restless that it is hard to sit still: 0 = Not at all Becoming easily annoyed or irritable: 1 = Several days Feeling afraid as if something awful might happen: 0 = Not at all Total BARBARA-7 score (0-4 normal; 5-9 mild; 10-14 moderate; 15-21 severe): 4 Source: Developed by Drs. Jay Vergara, Chante Bhat, Bart Spangler and colleagues, with an educational ansley from [employer]. Review of Systems Const Denies body aches, Denies chills, Denies fever(s), Denies headache(s) and Denies poor appetite Eyes Reports no additional complaints and Reports requires corrective lenses ENT Denies dysphagia, Denies dizziness, Denies headache(s) and Denies odynophagia Card Denies chest pain, Denies syncope, Denies edema, Denies irregular heart rhythm, Denies lightheadedness and Denies dyspnea Resp Denies cough and Denies dyspnea GI Denies abdominal pain, Denies constipation, Denies dysphagia, Denies diarrhea, Denies nausea, Denies odynophagia and Denies vomiting Reports no additional complaints Musc Reports no additional complaints and Denies abnormal gait Skin/Breast Reports system reviewed and no additional complaints, except as documented Neuro Denies abnormal gait, Denies dizziness, Denies syncope and Denies headache(s) Psych Reports no additional complaints Physical exam (Primary Care) Vital Signs: Last Vital Signs Pulse 68 09/27/24 14:14 BP 104/56 L 09/27/24 14:14 Pulse Ox 99 09/27/24 14:14 Oxygen Delivery Method Room Air 09/27/24 14:14 BMI result Body Mass Index 23.9 Tobacco/Smoking Status: Tobacco use Status Tobacco use date assessed 09/27/24 09/27/24 14:17 Patient Tobacco Use Status Never used Tobacco 09/27/24 14:17 e-Cigarette/Vaping Use Never Used 09/27/24 14:17 Depression Screening Interpretation: Positive Depression Screening Follow-up: Existing condition and New Medication prescribed Thrive Assessment: Date of Thrive Assessment Date Thrive assessed 09/27/24 09/27/24 14:17 Currently or been in a relationship where the following occur: I choose not to answer Const General: cooperative, healthy appearing, comfortable and no acute distress Orientation/consciousness: patient oriented x3 HENMT Head: Yes normocephalic Ears: hearing grossly normal bilaterally General nose exam: Normal external nose present Eyes General: appearance normal, both eyes and all related structures Conjunctivae: conjunctivae normal Neck Neck: Yes full ROM and Yes no lymphadenopathy Resp Effort & Inspection: normal respiratory effort Auscultation: clear to auscultation bilaterally, no crackles, no rales, no rhonchi and no wheezes Cardio Rate: regular rate Rhythm: regular rhythm Skin General skin exam: no rashes or lesions noted Neuro General: patient oriented x3 Gait exam (Neuro): Normal gait present Extrem General: Yes normal to inspection, Yes full ROM and No edema Psych Affect: normal affect Attitude: cooperative Insight: Good insight present (Psych) Judgement: Good judgement present (Psych) Coding Level of Care Code Est Pt Prev Care 18-39y(03797) Diagnoses Annual physical exam Z00.00 Anxiety F41.9 Depression F32.A Abnormal Pap smear of cervix R87.619 Acne scarring L90.5 Dysuria R30.0 Assessment & Plan Assessment & Plan (1) Annual physical exam: Code(s): Z00.00 - Encounter for general adult medical examination without abnormal findings Category: Medical Plan: Patient is up to date on all recommended routine screenings and vaccinations for her age. Blood work is up to date and has been reviewed with the patient. PLan to follow up yearly or sooner as needed. (2) Anxiety: Code(s): F41.9 - Anxiety disorder, unspecified Category: Medical Plan: She is currently following with outpatient psych and feels the medication she is taking is helpful. Continue to follow with psych. (3) Depression: Code(s): F32.A - Depression, unspecified Category: Medical Plan: See above (4) Abnormal Pap smear of cervix: Code(s): R87.619 - Unspecified abnormal cytological findings in specimens from cervix uteri Category: Medical Plan: Continue to follow with sales team member. (5) Acne scarring: Code(s): L90.5 - Scar conditions and fibrosis of skin Category: Medical Plan: Recommend Bio oil or Vitamin E oil to soften and lighten skin. Referral was also placed to dermatology today. (6) Dysuria: Code(s): R30.0 - Dysuria Category: Medical Plan: Reports pain and burning with urination. UTI, STD and vaginosis has been ruled out. I do recommend she follows up with sales team member as she believe it may be related to the draining cyst. She will follow up as needed for this concern. Plan For the acne scars, the patient is advised to use bio oil or vitamin E oil to improve skin texture. Monitoring for any changes is recommended. The patient should continue her current psychiatric medications, Lexapro and Lamictal, and maintain regular follow-ups with her psychiatrist. The recurrent cyst should be observed, and the patient should seek gynecological advice if symptoms persist. For the burning sensation during urination, increasing water intake is recommended, with further consultation if symptoms do not improve. The patient should continue taking vitamin D supplements to address the deficiency. This note was constructed using voice recognition software. While every effort has been made to ensure accuracy and jewelry salesperson, still areas may have been included sometimes these areas may affect the content or meeting of the given symptoms. Total time spent caring for the patient today was 30 minutes. This includes time spent before the visit reviewing the chart, time spent during the visit, and time spent after the visit and documentation. Patient was informed and verbally consented to the use of an ambient scribe for clinic note documentation during this visit. Orders: Referrals Dermatology Referral L90.5 - Scar conditions and fibrosis of skin
[2024-09-27 14:14] VITALS: BP 104/56; PULSE 68; O2SAT 99; BMI 23.9
--- OUTSIDE RECORDS SUMMARY | 2024-09-27 14:55 | XMS_ITS | Clinical Summary ---
Author Organization [facility] Address [address] [place] [address] Phone Care Team Providers Care Huc Name Role Phone Vilma Mishra MD Primary Care Provider [phone] Allergies Active Allergy Reactions Criticality Noted Date Comments [place] 08/07/2021 Other Reaction(s): Rash/Dermatitis Apple Swelling 05/02/2019 [...] (Infanrix) 6wks to less than 7yo ,03/27/1996,1994,09/30,1994 [id number] (Pentacel) 2mo to less than 5yo 01/19/1999,03/27/1996,1994,09/25,1994 [...] Known Problems Daughter Diabetes Father Arthritis, CAD, SD, hypercholesterolemia, depression, anxiety, hypertension Leukemia Maternal Grandfather [...] ( season) 2023 11/07/2020, 10/02/2020 Depression Screening 02/15/2024 05/20/2023 Influenza Vaccine (#1) 2024 12/28/2018, 2017 [...] Health Maintenance Results * Depression Screening (05/20/2023) [facility] Depression Screening abstracted [facility] Provider HEALTH MAINTENANCE Final Result * Lipid panel (06/16/2021) [facility] LDL/HDL Ratio 4 0 - 4 Triglycerides 142 0 - 150 mg/dL Cholesterol 169 0 - 200 mg/dL HDL 44 >=40 mg/dL LDL Cholesterol 97 0 - 100 mg/dL Blood Venous blood specimen / Unknown Historical Provider LAB BLOOD ORDERABLES Patsy l Result * Cervical Cancer Screening: HPV (07/24/2020) [facility] Cervical Cancer Screening: HPV no interpretation , abstracted [facility] Provider HEALTH MAINTENANCE Final Result from Last 3 Months or Most Recently Relevant to Health Maintenance Care Teams Huc Relationship Specialty Start Date End Date Vilma Mishra MD [address] [place] [id number] PCP - General 12/23/21
--- OUTSIDE RECORDS SUMMARY | 2024-09-27 14:55 | XMS_ITS | Clinical Summary ---
Author Organization [facility] Address [address] [facility] [address] [place] [address] Phone Care Team Providers Care Pro Shop Attendant Name Role Phone Vilma Mishra MD Primary Care Provider [phone] Immunizations Immunization Administration Dates Next Due COVID-19 (Pre-12/06) Moderna Vaccine, mRNA, PF 11/07/2020,10/02/2020 Hepatitis B Adult 03/08/1995,1994,06/08/18 95 Measles 01/21/2015 Tdap 11/24/2017 Varicella 11/04/2009,07/14/1995 Social History Tobacco Use Types Packs/Day Years Used Date Smoking Tobacco: Never Assessed Education Answer Date Recorded Are you interested in more education? Not on yang e 09/28/2022 Are you concerned about learning? Not on file 09/28/2022 No 09/28/2022 No 09/28/2022 Digital Access Answer Date Recorded No 09/28/2022 No 09/28/2022 Reliable internet access at home? Not on file 09/28/2022 Device with a working camera? Not on file Comments Unknown Sex and Gender Information Value Date Recorded Sex Assigned at Not on file Legal Sex Female 4:23 PM EDT Gender Identity Not on file Sexual Orientation Not on file Plan of Treatment Health Maintenance Due Date Last Done Comments DEPRESSION SCREENING 2006 SMOKING Hx and SMOKELESS TOBACCO SCREENING 06/09/2007 HEPATITIS C SCREENING 2012 HIV ONE-TIME SCREENING (18-6 5 YEARS) 2012 PAP SMEAR 06/09/2015 COVID-19 VACCINE (2023-2 5 season) 2023 11/07/2020, 10/02/2020 Adult Td,Tdap Booster 11/25/2027 11/24/2017 HEPATITIS A VACCINES Aged Out No long er eligible based on patient's age to complete this topic HIB VACCINES Aged Out No longer eligi ble based on patient's age to complete this topic MENINGOCOCCAL VACCINES (ACWY) Aged Out No longer eligible based on patient's age to complete this topic MENINGOCOCCAL VACCINES (B) Aged Out N o longer eligible based on patient's age to complete this topic PNEUMOCOCCAL VACCINES (0-49 years) Aged Out No longer eligible b ased on patient's age to complete this topic Medical Devices Not on file Insurance [employer] [facility] [employer] ALLANCE ACO [place] [phone] Care Teams Pro Shop Attendant Relationship Specialty Start Date End Date Vilma Mishra MD [address] [place] [id number] PCP - General Internal Medicine 09/29/22 Additional Source Comments The information contained in this document represents components of the legal health record. It is not the complete legal health record.[facility]
--- OUTSIDE RECORDS SUMMARY | 2024-09-27 14:55 | XMS_ITS | Clinical Summary ---
Author Organization [employer] Address [address] [place] [address] [address] [place] [address] Care Team Providers Care Director Of Academic Support Name Role Phone Unavailable Primary Care Provider [...]
== END 2024-09-27 14:45 | disposition home or self-care (01) ==
LOC: HO.HMCH 14:06
DX: Z00.00 Encounter for general adult medical examination without abnormal findings (principal); F41.9 Anxiety disorder, unspecified; F32.A Depression, unspecified; R87.619 Unspecified abnormal cytological findings in specimens from cervix uteri; L90.5 Scar conditions and fibrosis of skin; R30.0 Dysuria

== ENCOUNTER → 2024-09-27 14:05 | Outpatient (BNVA) | payer OTHER, SELFPAY | DX: Z00.00 Encounter for general adult medical examination without abnormal findings (principal); F41.9 Anxiety disorder, unspecified; F32.A Depression, unspecified; L90.5 Scar conditions and fibrosis of skin; R87.619 Unspecified abnormal cytological findings in specimens from cervix uteri; R30.0 Dysuria; Z79.899 Other long term (current) drug therapy | CPT/HCPCS: 99395 ==

== ENCOUNTER 2024-10-01 16:32 | Outpatient (AMB) | payer OTHER, SELFPAY ==
--- NOTE | 2024-10-01 16:33 | A.OFFPSYCH_ITS ---
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: No Allergies Sulfa (Sulfonamide Antibiotics) Allergy (Intermediate, Verified 09/27/24 14:22) Hives sulfamethoxazole (From Bactrim) Allergy (Intermediate, Verified 09/27/24 14:22) Hives trimethoprim (From Bactrim) Allergy (Intermediate, Verified 09/27/24 14:22) Hives Medication List - Last Reconciled 10/01/24 by Justine Castellano APRN cholecalciferol (vitamin D3) 25 mcg PO DAILY escitalopram oxalate 10 mg PO DAILY lamotrigine (Lamictal) 25 mg PO DAILY 30 days HPI- Psychiatric Chief Complaint: f/u consultation Intake Note: 10/01/24 PHQ-9 5 BARBARA-7 4 HPI Narrative: Iqra reports stopping medications for ~ one week. She reports experiencing feeling more irritated, increased in outbursts, crying, I was not OK. She has returned to the lamictal/lexapro combination and is feeling better. It has been her test of efficacy with both agents. She reports she plans to be consistent with the regime. She is pleased with her new job. She is planning on returning to [facility] in October and we completed online paperwork to authorize this [email or web address] This was completed along with a follow up call to their office as requested. Past Psychiatric History: IP: Denies OP: Hx of psychotherapy via telehealth-not helpful Meds: a few trials reported with PCP- Sertraline, Citalopram, Wellbutrin. Citalopram helped Subjective Subjective Subjective Medication Compliance: Yes Side effects from medications: No Review of Systems Medical Review of Systems: unchanged Review of Systems Review of Systems Denies Mental Status Exam Mental Status Exam Patient Appearance: Appropriate Patient Orientation: Person, Place, Time and Situation Level of Consciousness: Alert Patient Behavior: Talkative and Good Eye Contact Mood Description: Appropriate Affect Description: Appropriate Patient Cognition Impaired: No Ability to Follow Directions: Good Speech Pattern: Spontaneous Speech Memory Description: Intact Hallucinations: None Delusions: Not Present Thought Process: Intact and Goal Oriented Thought Content: positive for Intact and positive for Goal Oriented Judgement: Good Assessment and Plan Assessment & Plan (1) Depression: Status: Acute Code(s): F32.A - Depression, unspecified (2) Anxiety: Status: Acute Code(s): F41.9 - Anxiety disorder, unspecified Plan Continue Lexapro and Lamictal. Will call for a refill. As pt has just restarted. Will titrate when next refill is due. Education provided regarding the need to re-start Lamictal at 25 mg if pt is off her dose for 7 days and risks of re-starting at a higher dose if a significant amount of time has passed without regular dosing. Counseling and coordination of Care Medication management counseling: Effectiveness, Side effects, Dosing range, Duration, Drug interaction and Adherence Details: I spent [] minutes reviewing the record, seeing the patient and documenting in the medical record. Counseling provided to the patient/caregiver as outlined below. Addressed patient/caregiver concerns regarding current medication regime including effec tive adherence. Addressed patient/caregiver concerns regarding diagnosis and prognosis including accuracy of diagnosis, prognosis over time, impact of diagnosis. Addressed patient/caregiver concerns regarding impact of recent stressors. [facility] Surgical History History of gastric surgery History of 2 sections Family History Maternal Grandfather Leukemia Social History Housing: Apartment Alcohol intake: current Alcohol intake frequency: holidays/special occasions only Patient Tobacco Use Status: Never used Tobacco e-Cigarette/Vaping Use: Never Used Second Hand Smoke Exposure: No service: No Current occupational status: employed Current occupation: [employer] Cognitive needs: No Hearing needs: No Vision needs: Yes (Glasses) Social History: Born in [place], 3 siblings, a sister in [place], 2 brothers in [place]. 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 She is currently in [facility] for nursing/respiratory programs. 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 Family History- mother depressed, father with anxiety. Both use medication Substance History: Denies Trauma History: Affirms Coding Level of Care Code Est Pt Level 3 (51287) Diagnoses Depression F32.A Anxiety F41.9
--- OUTSIDE RECORDS SUMMARY | 2024-10-01 16:34 | XMS_ITS | Clinical Summary ---
Author Organization [facility] Address [address] [place] [address] Phone Care Team Providers Care Technical Training Specialist Name Role Phone Vilma Mishra MD Primary Care Provider [phone] Immunizations Immunization Administration Dates Next Due COVID-19 [...] topic Medical Devices Not on file Insurance webme ACO webme ACO webme [facility] ALLANCE ACO [facility] [employer] ALLANCE ACO [place] [id number] Care Teams Technical Training Specialist Relationship Specialty Start Date End Date Vilma Mishra MD [address] [place] [phone] PCP - General Internal Medicine 09/29/22 Additional Source Comments The information contained in this document represents components of the legal health record. It is not the complete legal health record.[facility]
--- OUTSIDE RECORDS SUMMARY | 2024-10-01 16:34 | XMS_ITS | Clinical Summary ---
Author Organization [facility] Address [address] [place] [address] Phone Care Team Providers Care Audio Director Name Role Phone Vilma Mishra MD Primary Care Provider [phone] Allergies Active Allergy Reactions Criticality Noted Date Comments [place] 08/07/2021 Other Reaction(s): Rash/Dermatitis Apple Swelling 05/02/2019 [...] (Infanrix) 6wks to less than 7yo ,03/27/1996,1994,09/30,1994 [id number] (Pentacel) 2mo to less than 5yo 01/19/1999,03/27/1996,1994,09/25,1994 [...] Known Problems Daughter Diabetes Father Arthritis, CAD, [place], hypercholesterolemia, depression, anxiety, hypertension Leukemia Maternal Grandfather [...] Health Maintenance Results * Depression Screening (05/20/2023) [facility] Depression Screening abstracted [facility] Provider HEALTH MAINTENANCE Final Result * Lipid panel (06/16/2021) [facility] LDL/HDL Ratio 4 0 - 4 Triglycerides 142 0 - 150 mg/dL Cholesterol 169 0 - 200 mg/dL HDL 44 >=40 mg/dL LDL Cholesterol 97 0 - 100 mg/dL Blood Venous blood specimen / Unknown Historical Provider LAB BLOOD ORDERABLES Patsy l Result * Cervical Cancer Screening: HPV (07/24/2020) [facility] Cervical Cancer Screening: HPV no interpretation , abstracted [facility] Provider HEALTH MAINTENANCE Final Result from Last 3 Months or Most Recently Relevant to Health Maintenance Care Teams Audio Director Relationship Specialty Start Date End Date Vilma Mishra MD [address] [place] [phone] PCP - General 12/23/21
--- OUTSIDE RECORDS SUMMARY | 2024-10-01 16:34 | XMS_ITS | Clinical Summary ---
Author Organization [employer] Address [address] 7 [place] [address] Care Team Providers Care Stone Chimney Mason Name Role Phone Unavailable Primary Care Provider [...] Tobacco Screening 2006 Family Planning (PISQ) 2009 Pap Smear 06/09/2015 COVID-19 Vaccine ( season) 2023 11/07/2020, 10/02/2020 Cervical Cancer Screening 2024 HPV/Cotest 2024 Influenza Vaccine (#1) 2024 9, 11/24/2017, 10/15/2017, Additional history exists DTaP/Tdap/Td Vaccines (10 - Td or Tdap) 06/22/2028 06/22/2018, 11/24/2017, 05/18/2012, Additional history exists Zoster Vaccines (1 of 2) 2044 RSV Patients and Patients Aged 60 years or older (1 - 1-dose 75+ series) 2069 Hepatitis B Vaccines Completed 03/08/1995, 03/08/1995, 1994, Additional history exists HIB Vaccines Completed 01/19/1999, 03/17, 1994, Additional history exists IPV Vaccines Completed 01/19/1999, 03/17, 03/27/1996, Additional history exists HPV Vaccines Completed 06/24/2008, 12/16, 06/10/2006 Meningococcal Vaccine Aged Out 06/24/2008 No gerardo haresh eligible based on patient's [...] 49) Years Aged Out No longer eligible based on patient's age to complete this topic RSV under 20 months Aged Out No longe r eligible based on patient's age to complete this topic Rotavirus Vaccines Aged Out No longer eligible based on patient's age to complete this topic
== END 2024-10-01 16:49 | disposition home or self-care (01) ==
LOC: HO.HOP 16:32
PROVIDERS: Visit Provider Clinical Nurse Specialist Psychiatric/Mental Health, Adult
DX: F32.A Depression, unspecified (principal); F41.9 Anxiety disorder, unspecified
CPT/HCPCS: 99213

== ENCOUNTER → 2024-10-01 16:32 | Outpatient (BNVA) | payer OTHER, SELFPAY | PROVIDERS: Visit Provider Clinical Nurse Specialist Psychiatric/Mental Health, Adult | DX: F32.A Depression, unspecified (principal); F41.9 Anxiety disorder, unspecified | CPT/HCPCS: 99212 ==

== ENCOUNTER 2024-11-02 07:47 | Outpatient (AMB) | payer OTHER, SELFPAY ==
--- OUTSIDE RECORDS SUMMARY | 2024-11-02 07:49 | XMS_ITS | Clinical Summary ---
Author Organization [facility] Address [address] [place] [address] Phone Care Team Providers Care Check Grader Name Role Phone Vilma Msihra MD Primary Care Provider [phone] Allergies Active Allergy Reactions Criticality Noted Date Comments [place] 08/07/2021 Other Reaction(s): Rash/Dermatitis Apple Swelling 05/02/2019 [...] (Infanrix) 6wks to less than 7yo ,03/27/1996,1994,09/30,1994 [id number] (Pentacel) 2mo to less than 5yo 01/19/1999,03/27/1996,1994,09/25,1994 [...] Known Problems Daughter Diabetes Father Arthritis, CAD, [place], hypercholesterolemia, depression, anxiety, hypertension Leukemia Maternal Grandfather [...] 01/17/2022 Social Influencers of Health Screening 01/17/2022 Depression Screening 02/15/2024 05/20/2023 COVID-19 Vaccine ( season) 2024 11/07/2020, 10/02/2020 Influenza Vaccine (#1) 2024 12/28/2018, 2017 Cervical [...] Health Maintenance Results * Depression Screening (05/20/2023) [facility] Depression Screening abstracted [facility] Provider HEALTH MAINTENANCE Final Result * Lipid panel (06/16/2021) [facility] LDL/HDL Ratio 4 0 - 4 Triglycerides 142 0 - 150 mg/dL Cholesterol 169 0 - 200 mg/dL HDL 44 >=40 mg/dL LDL Cholesterol 97 0 - 100 mg/dL Blood Venous blood specimen / Unknown Historical Provider LAB BLOOD ORDERABLES Patsy l Result * Cervical Cancer Screening: HPV (07/24/2020) [facility] Cervical Cancer Screening: HPV no interpretation , abstracted [facility] Provider HEALTH MAINTENANCE Final Result from Last 3 Months or Most Recently Relevant to Health Maintenance Care Teams Check Grader Relationship Specialty Start Date End Date Vilma Mishra MD [address] [place] [phone] PCP - General 12/23/21
--- OUTSIDE RECORDS SUMMARY | 2024-11-02 07:49 | XMS_ITS | Clinical Summary ---
Author Organization [employer] Address [address] [facility] 7 [place] [address] Care Team Providers Care Template Layout Worker Name Role Phone Unavailable Primary Care Provider [...] Family Planning (PISQ) 2009 Pap Smear 06/09/2015 Cervical Cancer Screening 2024 HPV/Cotest 2024 COVID-19 Vaccine ( season) 2024 11/07/2020, 10/02/2020 Influenza Vaccine (#1) 2024 9, 11/24/2017, 10/15/2017, [...]
--- OUTSIDE RECORDS SUMMARY | 2024-11-02 07:49 | XMS_ITS | Clinical Summary ---
Author Organization [facility] Address [address] [place] [address] Care Team Providers Care Nc Manager Name Role Phone Pcp, No Primary Care Provider Unavailabl e Allergies No known active allergies Medications D3-1000 25 MCG (1000 UT) capsule Take 1,000 Units by mouth. 09/17/2024 Active escitalopram (LEXAPRO) 10 MG tablet Take 10 mg by mouth. Active lamoTRIgine (LaMICtal) 25 MG tablet Take 25 mg by mouth. 09/29/2024 Active Mirena, 52 MG, 20 MCG/DAY IUD BRING TO OFFICE FOR INSERTION. BRING TO YOUR OBGYN APPOINTMENT . Active Active Problems Problem Noted Date Diagnosed Date Anemia 10/19/2024 Low grade squamous intraepit helial lesion (LGSIL) on cervicovaginal cytologic smear 10/19/2024 Vitamin D deficiency 01/30/2024 Perennial allergic rhinitis 05/02/2019 Pollen-food allergy 05/02/2019 Asymptomatic microscopic hematuria 11/25/2017 Anxiety 08/15/2017 Constipation 08/15/2017 Encounters Date Type Department Care Team Description 10/19/2024 2:05 PM EDT Office Visit [facility] [address] [place] [address] Keegan Tanner, Suzi Falk, POLE FRAME CONSTRUCTION WORKER Screening examination for STI (Primary Dx); Vaginal irritation from Last 3 Months Social History Tobacco Use Types Packs/Day Years Used Date Smoking Tobacco: Never Assessed Comments Unknown Sex and Gender Information Value Date Recorded Sex Assigned at Not on file Legal Sex Female 3:21 PM EST Gender Identity Not on file Sexual Orientation Not on file Last Filed Vital Signs Vital Sign Reading Time Taken Comments Blood Pressure 110/72 10/19/2024 2:52 PM EDT Pulse 76 10/19/2024 2:52 PM EDT Temperature - - Respiratory Rate - - Oxygen Saturation 98% 10/19/2024 2:52 PM EDT Inhaled Oxygen Concentration - - Weight 55.8 kg (123 lb) 10/19/2024 2:52 PM EDT Height 152.4 cm (5') 10/19/2024 2:52 PM EDT Body Mass Index 24.02 10/19/2024 2:52 PM EDT Plan of Treatment Health Maintenance Due Date Last Done Comments Hepatitis C Virus Screening 1994 HIV Screening 06/09/2007 DTaP/Tdap/Td Vaccines (1 - Tdap) 2013 Hepatitis B Vaccines (1 of 3 - 19+ 3-dose series) 2013 Pap Smear (Ages 21-65) 06/09/2015 HPV Vaccines (1 - 3-dose SCDM series) 2021 Influenza Vaccine 09/14/2024 12/28/2018, , 10/15/2017, Additional history exists COVID-19 Vaccine (2024- season) 2024 11/07/2020, 10/02/2020 Pneumococcal Vaccine: Pediatric (0-5 Years) and At-Risk Patients (6 to 49 Years) Aged Out No longer eligible based on patient's age to complete this topic Procedures Procedure Name Priority Date/Time Associated Diagnosis Comments [facility] ADVANCED VAGINITIS PLUS, TMA Routine 10/19/2024 2:43 PM EDT Screening examination for STI Vaginal irritation from Last 3 Months Results * Sureab Advanced Vaginitis Plus, TMA (10/19/2024 2:43 PM EDT) Sureab Adv Bacterial Vaginosis (BV), TMA NEGATIVE NEGATIVE [employer] Alesia Species NOT DETECTED NOT DETECTED [employer] Alesia Glabrata NOT DETECTED NOT DETECTED [employer] Comment: Alesia species C. albicans, C. tropicalis, C. parapsilosis, and/or C. dubliniensis can be detected, but not differentiated, in the Alesia spp. result. Trichomonas Vaginalis (TV), TMA NOT DETECTED NOT DETECTED [employer] Chlamydia Trachomatis RNA, TMA NOT DETECTED NOT DETECTED [employer] Neisseria Gonorrhoeae RNA, TMA NOT DETECTED NOT DETECTED [employer] Comment: For additional information, please refer to [email or web address]/faq/[email or web address] (This link is being provided for information/ educational purposes only.) 10/19/2024 2:43 PM EDT 10/20/2024 8:53 AM EDT us Suzi Conner POLE FRAME CONSTRUCTION WORKER LAB AMB MICRO ORDERABLES Patsy l Result [employer] [address] [place] [phone] from Last 3 Months Insurance [address] [place] Care Teams Nc Manager Relationship Specialty Start Date End Date Pcp, No PCP - General General Medicine 12/29/23
--- OUTSIDE RECORDS SUMMARY | 2024-11-02 07:49 | XMS_ITS | Clinical Summary ---
Author Organization [facility] Address [address] [place] [address] Phone Care Team Providers Care Range Mounter Name Role Phone Vilma Mishra MD Primary Care Provider [phone] Immunizations Immunization Administration Dates Next Due COVID-19 [...] (18-6 5 YEARS) 2012 PAP SMEAR 06/09/2015 INFLUENZA VACCINE (#1) 2024 COVID-19 VACCINE (2024-2 6 season) 2024 11/07/2020, 10/02/2020 Adult Td,Tdap Booster 11/25/2027 11/24/2017 [...] topic Medical Devices Not on file Insurance [employer] ACO [employer] [facility] [facility] ALLANCE ACO [facility] ACO [facility] ALLANCE ACO [facility] ALL[facility] ACO [place] [id number] Care Teams Range Mounter Relationship Specialty Start Date End Date Vilma Mishra MD [address] [place] [phone] PCP - General Internal Medicine 09/29/22 Additional Source Comments The information contained in this document represents components of the legal health record. It is not the complete legal health record.[facility]
--- NOTE | 2024-11-02 07:52 | MHC.OFFWIV ---
Intake Vital Signs 11/02/24 07:53 Height 5 ft 0.5 in Weight 126 lb BMI 24.2 BP 94/62 Blood Pressure Location Lt brachial Position Sitting Respiration 16 Pulse 86 Pulse Source Pulse Oximeter Temp 98.7 F Temp Source Oral Pulse Oximetry (%) 96 Oxygen Delivery Method Room Air Intake Visit Reasons: EP ate trail mix, vomiting, ear itching, allergic? Intake Note: Pt is here today c/o vomiting, ear itching allergic reaction due to trail mix: last night Patient Tobacco Use Status: Never used Tobacco Allergies Sulfa (Sulfonamide Antibiotics) Allergy (Intermediate, Verified 09/27/24 14:22) Hives sulfamethoxazole (From Bactrim) Allergy (Intermediate, Verified 09/27/24 14:22) Hives trimethoprim (From Bactrim) Allergy (Intermediate, Verified 09/27/24 14:22) Hives HPI HPI Comments History of Present Illness Details History - The patient is a 29-year-old female presenting with symptoms suggestive of an allergic reaction following the consumption of trail mix. - The patient consumed trail mix and subsequently experienced worsening throat symptoms, including difficulty speaking and itchy ears and nose. - She reported a sensation of throat tightness but denied any breathing difficulties or wheezing. - She took a Zyrtec which helped her symptoms. - Vomiting occurred on the way home from work, later that day. - The patient has a history of seasonal allergies but does not take daily medication for it. 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 - The patient has not undergone allergy testing recently as her previous director project management's office closed. - Feels better now, just some residual stomach pain from vomiting. - Thinks it may be the sunflower seeds in the mix. Review of Systems - ENT: Reports itchy ears and nose, sensation of throat tightness, difficulty speaking. Denies breathing difficulties or wheezing. - Gastrointestinal: Reports vomiting after consuming trail mix. - Allergic/Immunologic: Reports seasonal allergies, allergy to sulfur. All systems reviewed and are unremarkable except as noted in HPI and below PFSH Surgical History History of gastric surgery History of 2 sections Family History Maternal Grandfather Leukemia Social History Housing: Apartment Alcohol intake: current Alcohol intake frequency: holidays/special occasions only Patient Tobacco Use Status: Never used Tobacco e-Cigarette/Vaping Use: Never Used Second Hand Smoke Exposure: No service: No Current occupational status: employed Current occupation: [employer] Cognitive needs: No Hearing needs: No Vision needs: Yes (Glasses) Review of Systems Const All systems reviewed & are unremarkable except as noted in HPI and below Physical Exam Vital Signs: Last Vital Signs Temp 98.7 F 11/02/24 07:53 Pulse 86 11/02/24 07:53 Resp 16 11/02/24 07:53 BP 94/62 11/02/24 07:53 Pulse Ox 96 11/02/24 07:53 Oxygen Delivery Method Room Air 11/02/24 07:53 BMI result Body Mass Index 24.2 Const General: cooperative, healthy appearing, comfortable, no acute distress and well developed Orientation/consciousness: patient oriented x3 Limitations: no limitations HEENT Head: Yes normal to inspection Ears: hearing grossly normal bilaterally General nose exam: Normal external nose present Face and sinus: Yes normal facial exam Eyes General: appearance normal, both eyes and all related structures Neck Neck: Yes normal visual inspection and Yes full ROM Resp Effort & Inspection: normal respiratory effort and able to speak in complete sentences Skin General skin exam: no rashes or lesions noted Neuro General: patient oriented x3 Extrem General: Yes normal to inspection Assessment & Plan Assessment & Plan (1) Allergic reaction to food: Code(s): T78.1XXA - Other adverse food reactions, not elsewhere classified, initial encounter Qualifiers: Encounter type: initial encounter Qualified Code(s): T78.1XXA - Other adverse food reactions, not elsewhere classified, initial encounter Plan: Plan - Prescribe an EpiPen for emergency use in case of future allergic reactions. - Advise the patient to avoid sunflower seeds and oils and be cautious with packaged foods due to potential hidden allergens. - Recommend follow-up with an director project management for comprehensive allergy testing. Sent PCP message to arrange. - Educate the patient on the use of the EpiPen and the importance of carrying it at all times. - Can also use Benadryl and Pepcid. Patient was informed and verbally consented to the use of an ambient scribe for clinic note documentation during this visit. Medications: New epinephrine for 2 doses; call 911 0.3 mg (0.3 mL) IM Q15M PRN 2 ea 0RF anaphylaxis Coding Level of Care Code Est Pt Level 3 (45006) Diagnoses Allergic reaction to food, initial encounter T78.1XXA Encounter type: initial encounter
[2024-11-02 07:53] VITALS: BP 94/62; PULSE 86; RESP 16; TEMP 37.1; O2SAT 96; BMI 24.2
== END 2024-11-02 08:19 | disposition home or self-care (01) ==
PROVIDERS: Visit Provider Physician Assistant
DX: T78.1XXA Other adverse food reactions, not elsewhere classified, initial encounter (principal)

== ENCOUNTER → 2024-11-02 07:47 | Outpatient (BNVA) | payer OTHER, SELFPAY | PROVIDERS: Visit Provider Physician Assistant | DX: T78.1XXA Other adverse food reactions, not elsewhere classified, initial encounter (principal); X58.XXXA Exposure to other specified factors, initial encounter; Y93.9 Activity, unspecified; Y92.9 Unspecified place or not applicable; Y99.9 Unspecified external cause status | CPT/HCPCS: 99212 ==

== ENCOUNTER 2024-11-29 07:47 | Outpatient (REF) | payer OTHER, SELFPAY ==
[2024-11-29 15:42] LABS: Bacterial Vaginosis PCR NEGATIVE (Negative); Candida Group PCR NOT DETECTED (Not Detect); Candida glab krusei PCR NOT DETECTED (Not Detect); Trichomonas vaginalis PCR NOT DETECTED (Not Detect)
== END 2024-11-29 07:48 | disposition home or self-care (01) ==
LOC: HO.LAB 07:47
PROVIDERS: Visit Provider Physician Assistant Medical
DX: R30.0 Dysuria (principal); N39.0 Urinary tract infection, site not specified
CPT/HCPCS: 81003; 81515; 87086; 99212

== ENCOUNTER 2024-11-29 07:47 | Outpatient (AMB) | payer OTHER, SELFPAY ==
--- OUTSIDE RECORDS SUMMARY | 2024-11-29 07:49 | XMS_ITS | Clinical Summary ---
Author Organization [employer] Address [address] [facility] 7 [place] [address] Care Team Providers Care Square Cutter Name Role Phone Unavailable Primary Care Provider [...]
--- OUTSIDE RECORDS SUMMARY | 2024-11-29 07:49 | XMS_ITS | Clinical Summary ---
Author Organization [facility] Address [address] [place] [address] Phone Care Team Providers Care Tobacco Roller Name Role Phone Vilma Mishra MD Primary Care Provider [phone] Immunizations Immunization Administration Dates Next Due COVID-19 [...] topic Medical Devices Not on file Insurance X5 Group ACO X5 Group ACO [employer] ALL[employer] [facility] [place] [id number] Care Teams Tobacco Roller Relationship Specialty Start Date End Date Vilma Mishra MD [address] [place] [phone] PCP - General Internal Medicine 09/29/22 Additional Source Comments The information contained in this document represents components of the legal health record. It is not the complete legal health record.[facility]
--- OUTSIDE RECORDS SUMMARY | 2024-11-29 07:49 | XMS_ITS | Clinical Summary ---
Author Organization 175 [facility] Address [address] [place] [address] Phone Care Team Providers Care Carbonation Equipment Operator Name Role Phone Vilma Mishra MD Primary Care Provider [phone] Allergies Active Allergy Reactions Criticality Noted Date Comments [place] 08/07/2021 Other Reaction(s): Rash/Dermatitis Apple Swelling 05/02/2019 [...] hematuria 11/25/2017 Anxiety 08/15/2017 Constipation 08/15/2017 Immunizations Immunization Administration Dates Next Due DTaP (Infanrix) 6wks to less than 7yo ,03/27/1996,1994,09/30,1994 [id number] (Pentacel) 2mo to less than 5yo 01/19/1999,03/27/1996,1994,09/25,1994 [...] 11/25/2027 11/24/2017, 06/10/2006, 01/19/1999, Additional history exists RSV Immunization Adult Patients (1 - 1-dose 75+ series) 2069 Hepatitis [...] Health Maintenance Results * Depression Screening (05/20/2023) Pathologist [facility] Depression Screening abstracted Historical Provider HEALTH MAINTENANCE Final Result * Lipid panel (06/16/2021) [facility] LDL/HDL Ratio 4 0 - 4 Triglycerides 142 0 - 150 mg/dL Cholesterol 169 0 - 200 mg/dL HDL 44 >=40 mg/dL LDL Cholesterol 97 0 - 100 mg/dL Blood Venous blood specimen / Unknown Historical Provider LAB BLOOD ORDERABLES Patsy l Result * Cervical Cancer Screening: HPV (07/24/2020) [facility] Cervical Cancer Screening: HPV no interpretation , abstracted us Historical Provider HEALTH MAINTENANCE Final Result from Last 3 Months or Most Recently Relevant to Health Maintenance Care Teams Carbonation Equipment Operator Relationship Specialty Start Date End Date Vilma Mishra MD [address] [place] [phone] PCP - General 12/23/21
--- OUTSIDE RECORDS SUMMARY | 2024-11-29 07:49 | XMS_ITS | Clinical Summary ---
Author Organization [facility] Address [address] [place] [address] Care Team Providers Care Biodiesel Engineering Manager Name Role Phone Pcp, No Primary [...] Description 10/19/2024 2:05 PM EDT Office Visit [facility] [place] [address] [place] [address] Keegan Tanner, Suzi Falk, ENVIRONMENTAL MONITORING SPECIALIST Screening examination for STI (Primary Dx); Vaginal [...] series) 2013 Pap Smear (Ages 21-65) 06/09/2015 Influenza Vaccine 09/14/2024 12/28/2018, , 10/15/2017, Additional history exists COVID-19 Vaccine (2024- season) 2024 11/07/2020, 10/02/2020 HPV Vaccines (No Doses Required) Completed Pneumococcal Vaccine: Pediatric (0-5 Years) and At-Risk Patients (6 to 49 Years) Aged Out No longer eligible based on patient's age to complete this topic Procedures Procedure Name Priority Date/Time Associated Diagnosis Comments [facility] ADVANCED VAGINITIS PLUS, TMA Routine 10/19/2024 2:43 PM EDT Screening examination for STI Vaginal irritation from Last 3 Months Results * [facility] Advanced Vaginitis Plus, TMA (10/19/2024 2:43 PM EDT) [facility] Adv Bacterial Vaginosis (BV), TMA NEGATIVE NEGATIVE [facility] Alesia Species NOT DETECTED NOT DETECTED [facility] Alesia Glabrata NOT DETECTED NOT DETECTED [facility] Comment: Alesia species C. albicans, C. tropicalis, C. parapsilosis, and/or C. dubliniensis can be detected, but not differentiated, in the Alesia spp. result. Trichomonas Vaginalis (TV), TMA NOT DETECTED NOT DETECTED [facility] Chlamydia Trachomatis RNA, TMA NOT DETECTED NOT DETECTED [facility] Neisseria Gonorrhoeae RNA, TMA NOT DETECTED NOT DETECTED [facility] Comment: For additional information, please refer to [email or web address]/faq/[email or web address] (This link is being provided for information/ educational purposes only.) 10/19/2024 2:43 PM EDT 10/20/2024 8:53 AM EDT us Suzi Conner ENVIRONMENTAL MONITORING SPECIALIST LAB AMB MICRO ORDERABLES Patsy l Result [facility] [address] [place] [phone] from Last 3 Months Insurance 31 [address]Z [place] Care Teams Biodiesel Engineering Manager Relationship Specialty Start Date End Date Pcp, No PCP - General General Medicine 12/29/23
[2024-11-29 07:50] VITALS: BP 100/70; PULSE 74; RESP 16; TEMP 36.5; O2SAT 100; BMI 23.0
--- NOTE | 2024-11-29 07:50 | AM.OFFWIN_ITS ---
Intake Vital Signs 11/29/24 07:50 Height 5 ft 0.5 in Weight 120 lb BMI 23.0 BP 100/70 Blood Pressure Location Rt brachial Position Sitting Respiration 16 Pulse 74 Pulse Source Pulse Oximeter Temp 97.7 F Temp Source Oral Pulse Oximetry (%) 100 Oxygen Delivery Method Room Air Intake Visit Reasons: EP-uti Intake Note: Pt is here today c/o burning sensation upon urination x3days Patient Tobacco Use Status: Never used Tobacco Allergies Sulfa (Sulfonamide Antibiotics) Allergy (Intermediate, Verified 11/29/24 07:51) Hives sulfamethoxazole (From Bactrim) Allergy (Intermediate, Verified 11/29/24 07:51) Hives trimethoprim (From Bactrim) Allergy (Intermediate, Verified 11/29/24 07:51) Hives HPI HPI Comments History of Present Illness Details History - The patient is a 29-year-old female pr esenting with symptoms suggestive of a urinary tract infection. - Symptoms began three days ago, with in creased urinary frequency and discomfort. - No associated back pain or hematuria r eported. - No fever, vaginal discharge, or bleedi ng noted. - She has an intrauterine device (IUD) s o she has abnormal menses. - She has been having a vaginal itch but no vaginal discharge or odor. - No significant past medical history of urinary tract infections or bacterial vaginosis. Physical Exam General: Cooperative, healthy appearing, comfortable, no acute distress and well developed Cardiac: Normal S1 and S2. RRR, no M/R/G noted. Respiratory: Normal respiratory effort and able to speak in complete sentences. Clear to auscultation bilaterally. No w/r/r noted. Skin: No rashes or lesions noted. GI: Normal inspection. Normal BS noted. Soft, non-tender, non-distended. No TTP of all 4 quadrants. No guarding or rebound tenderness noted. Back: Negative CVA bilaterally Patient was informed and verbally consented to the use of an ambient scribe for clinic note documentation during this visit. [facility] Surgical History History of gastric surgery History of 2 sections Family History Maternal Grandfather Leukemia Social History Housing: Apartment Alcohol intake: current Alcohol intake frequency: holidays/special occasions only Patient Tobacco Use Status: Never used Tobacco e-Cigarette/Vaping Use: Never Used Second Hand Smoke Exposure: No service: No Current occupational status: employed Current occupation: [employer] Cognitive needs: No Hearing needs: No Vision needs: Yes (Glasses) Review of Systems Const All systems reviewed & are unremarkable except as noted in HPI and below Physical Exam Vital Signs: Last Vital Signs Temp 97.7 F 11/29/24 07:50 Pulse 74 11/29/24 07:50 Resp 16 11/29/24 07:50 BP 100/70 11/29/24 07:50 Pulse Ox 100 11/29/24 07:50 Oxygen Delivery Method Room Air 11/29/24 07:50 BMI result Body Mass Index 23.0 Results AMB Urinalysis, Automated UA Leukoctes 0 Mimi/uL Last Edit by Maureen Daniels CMA on 11/29/24 07:58 UA Nitrite Negative Last Edit by Maureen Daniels CMA on 11/29/24 07:58 UA Urobilinogen 0.2 mg/dL Last Edit by Maureen Daniels CMA on 11/29/24 07:58 UA Protein 0 mg/dL Last Edit by Maureen Daniels CMA on 11/29/24 07:58 UA pH 6.0 Last Edit by Maureen Daniels CMA on 11/29/24 07:58 UA Blood 10 Jerry/uL Last Edit by Maureen Daniels CMA on 11/29/24 07:58 UA Specific [place] 1.025 Last Edit by Maureen Daniels CMA on 11/29/24 07:58 UA Ketone Negative Last Edit by Maureen Daniels CMA on 11/29/24 07:58 UA Bilirubin 0 mg/dL Last Edit by Maureen Daniels CMA on 11/29/24 07:58 UA Glucose 0 mg/dL Last Edit by Maureen Daniels CMA on 11/29/24 07:58 Results Reviewed Results Reviewed: Laboratory Last Values Urine pH (Auto) 6.0 11/29/24 07:51 Specific [place] (Auto) 1.025 11/29/24 07:51 Urine Protein (Auto) 0 mg/dL 11/29/24 07:51 Glucose (UA)(Auto) 0 mg/dL 11/29/24 07:51 Urine Ketones (Auto) Negative 11/29/24 07:51 Urine Blood (Auto) 10 Jerry/uL 11/29/24 07:51 Urine Nitrite (Auto) Negative 11/29/24 07:51 Urine Bilirubin (Auto) 0 mg/dL 11/29/24 07:51 Urine Urobilinogen (Auto) 0.2 mg/dL 11/29/24 07:51 Leukocyte Esterase (Auto) 0 Mimi/uL 11/29/24 07:51 Assessment & Plan Assessment & Plan (1) Dysuria: Code(s): R30.0 - Dysuria Plan Most likely UTI vs yeast infection vs BV UA +blood plan - will order UC - will also order the vaginal panel - start the antibiotics as prescribed - drink lots of fluids - tylenol or motrin as needed - will call with the results - can adjust the treatment per the results Orders: Orders Bacterial Vaginosis Panel Today R30.0 - Dysuria AMB Urinalysis Automated Today Z13.9 - Encounter for screening, unspecified Urine Culture Today N39.0 - Urinary tract infection, site not specified Medications: New cefuroxime axetil 500 mg PO Q12H 10 tabs 0RF Coding Level of Care Code Est Pt Level 3 (40840) Diagnoses Dysuria R30.0
== END 2024-11-29 08:19 | disposition home or self-care (01) ==
PROVIDERS: Visit Provider Physician Assistant Medical
DX: Z13.9 Encounter for screening, unspecified (principal); R30.0 Dysuria

== ENCOUNTER 2025-01-05 13:47 | Outpatient (AMB) | payer OTHER, SELFPAY ==
--- OUTSIDE RECORDS SUMMARY | 2025-01-05 13:49 | XMS_ITS | Clinical Summary ---
Author Organization 175 [facility] Address [address] [place] [address] Phone Care Team Providers Care Ophthalmic Nurse Name Role Phone Vilma Mishra MD Primary Care Provider [phone] Allergies Active Allergy Reactions Criticality Noted Date Comments [place] 08/07/2021 Other Reaction(s): Rash/Dermatitis Apple Swelling 05/02/2019 [...] (Infanrix) 6wks to less than 7yo ,03/27/1996,1994,09/30,1994 [id number] (Pentacel) 2mo to less than 5yo 01/19/1999,03/27/1996,1994,09/25,1994 [...] Known Problems Daughter Diabetes Father Arthritis, CAD, MD, hypercholesterolemia, depression, anxiety, hypertension Leukemia Maternal Grandfather [...] Maintenance Results * Depression Screening (05/20/2023) Pathologist [facility] Depression Screening abstracted Historical Provider HEALTH MAINTENANCE Final Result * Lipid panel (06/16/2021) [facility] LDL/HDL Ratio 4 0 - 4 Triglycerides 142 0 - 150 mg/dL Cholesterol 169 0 - 200 mg/dL HDL 44 >=40 mg/dL LDL Cholesterol 97 0 - 100 mg/dL Blood Venous blood specimen / Unknown Historical Provider LAB BLOOD ORDERABLES Patsy l Result * Cervical Cancer Screening: HPV (07/24/2020) [facility] Cervical Cancer Screening: HPV no interpretation , abstracted us Historical Provider HEALTH MAINTENANCE Final Result from Last 3 Months or Most Recently Relevant to Health Maintenance Care Teams Ophthalmic Nurse Relationship Specialty Start Date End Date Vilma Mishra MD [address] [place] [phone] PCP - General 12/23/21
--- OUTSIDE RECORDS SUMMARY | 2025-01-05 13:49 | XMS_ITS | Data Portability ---
Author Organization [facility] [address] Address [address] [place] [address] Assessment No assessment recorded. Plan of Treatment Reminders Order Date Submit Date Provider Last Modified By Organization Details Last Modified Time Details Appointments None recorded. Lab hepatitis B surface Ab, quantitativ e, serum 2022 023 [facility], [facility] [place], [address], 3 08:08:38 measles + mumps + rubella virus IgG panel, QN, serum or plasma 2022 023 [facility], [address] [place], [address], 3 08:08:37 varicella zoster virus IgG Ab, QN, IA, serum 2022 023 [facility], [facility] [place], [address], 3 08:08:38 Referral None recorded. Procedures None [...] 0.99 Immun e >0.99 Not Available [facility] ([facility]) [address] [facility], [place], [address], 06/23/2022 08:08:37 06/23/19 23 06/23/2022 MEASL ES/MU MPS/R UBELL A IMMUN ITY measles antibodies, IgG 155.0 AU/mL immune >16.4 Negat inessa <13.5 Equiv ocal 13.5 - 16.4 Posit inessa >16.4 Prese nce of antib odies to Rubeo la is presu mptiv e evide nce of immun ity excep t when acute infec tion is suspe cted. Not Available [facility] ([facility]) [address] [facility], [place], [address], 06/23/2022 08:08:37 06/23/1906/23/2022 MEASL ES/MU MPS/R UBELL A IMMUN ITY mumps abs, IgG 100.0 AU/mL immune >10.9 Negat inessa <9.0 Equiv ocal 9.0 - 10.9 Posit inessa >10.9 A posit inessa resul t gener ally indic ates past expos ure to Mumps virus or previ ous vacci natio n. Not Available [facility] ([facility]) [address] [place], [address], 06/23/2022 08:08:37 06/23/1906/23/2022 HEPAT ITIS B SURF AB QUANT hepatitis B surf Ab quant 48.8 mIU/m L immuni ty>9.9 Statu s of Immun ity Anti- HBs Level ----- ----- ----- --- ----- ----- ---- Incon siste nt with Immun ity 0.0 - 9.9 Consi stent with Immun ity >9.9 Not Available [facility] ([facility]) [address] [facility], [place], [address], 06/23/2022 08:08:38 06/23/19 23 06/23/2022 VARIC TYRELL- [...] stage of disea se. Not Available [facility] ([facility]) [address] [facility], [place], [address], 06/23/2022 08:08:38 Result Notes None recorded. Procedures Surgical History Date Name Laterality Status Provider Name and Address Organization Details Recorded Time 08/05/19 23 OC[facility] Rapid 5 or 10 panel Template completed IRIS TERRELL PA - [facility] 08/04/2022 12:35:21 06/23/19 23 [facility] Send Out Template NON DOT completed Floresita [place] PA - [facility] 06/22/2022 13:17:14 06/23/19 23 PSC - Venipuncture Template completed Floresita [place] PA - [facility] 06/22/2022 12:12:45 Imaging [...] Diagnosis SNOMED-CT Code Diagnosis ICD10 Code Diagnosis IMO Codes Diagnosis Note [id number] [address] [facility] [place] [address] 03/21/2020 08:08:13 03/21/2020 09:11:08 [id number] [address] [facility] [place] [address] 03/30/2017 14:09:46 03/30/2017 15:02:00 [id number] [place] Lux [place] [address] [place] [address] 06/22/2022 09:13:20 06/22/2022 13:37:46 Tuberculosis screening [id number] Z11.1 History an d physical examination, occupation [id number] Z02.1 History an d physical examination, pre-employment [id number] Z02.1 [id number] [place] [address] [place] [address] 08/04/2022 12:19:45 08/04/2022 13:21:47 History and physical examination, occupation [id number] Z02.1 Health Concerns Section Related Observation LastModified by Organization Detai ls LastModified Time None Recorded Concern Status LastModified by Organization Details LastModified Time None Recorded Advance Directives Directive None Recorded Payers Insurance Date Sequence Insurance Name Policy Number Policy Logan Covered Member ID Logan Member ID Guarantor Name 08/04/2022 1 [facility] (O) VASU Dewitt [id number] Iqra Dewitt 06/22/2022 OC-ESCREEN Iqra Dewitt [id number] Iqra Dewitt 08/04/2022 OC-ESCREEN Iqra Dewitt [facility] Iqra Dewitt OBGyn Episode No OBEpisode recorded.
--- OUTSIDE RECORDS SUMMARY | 2025-01-05 13:49 | XMS_ITS | Clinical Summary ---
Author Organization [facility] Address [address] [place] [address] Phone Care Team Providers Care Fuel Cell Assembler Name Role Phone Vilma Mishra MD Primary Care Provider [phone] Immunizations Immunization Administration Dates Next Due COVID-19 [...] topic Medical Devices Not on file Insurance [employer] [facility]CO [facility] ALLANCE [facility]CO [facility] [employer]ANCE [place] [id number] Care Teams Fuel Cell Assembler Relationship Specialty Start Date End Date Vilma Mishra MD [address] [place] [phone] PCP - General Internal Medicine 09/29/22 Additional Source Comments The information contained in this document represents components of the legal health record. It is not the complete legal health record.[facility]
--- OUTSIDE RECORDS SUMMARY | 2025-01-05 13:49 | XMS_ITS | Clinical Summary ---
Author Organization [employer] Address [address] [facility] 7 [place] [address] Care Team Providers Care Journeyman Powerhouse Operator Name Role Phone Unavailable Primary Care Provider [...]
--- OUTSIDE RECORDS SUMMARY | 2025-01-05 13:49 | XMS_ITS | Clinical Summary ---
Author Organization [facility] Address [address] [place] [address] Care Team Providers Care Exhaust Equipment Operator Name Role Phone Pcp, No Primary Care [...] Description 10/19/2024 2:05 PM EDT Office Visit [facility] [address] [place] [address] Keegan Tanner, Suzi Falk, COLOR PRINTER OPERATOR Screening examination for STI (Primary Dx); Vaginal [...] Procedure Name Priority Date/Time Associated Diagnosis Comments [facility] ADVANCED VAGINITIS PLUS, TMA Routine 10/19/2024 2:43 PM EDT Screening examination for STI Vaginal irritation from Last 3 Months Results * [facility] Advanced [facility]ag[facility], TMA (10/19/2024 2:43 PM EDT) [facility] Adv Bacterial Vaginosis (BV), TMA NEGATIVE NEGATIVE [facility] Alesia Species NOT DETECTED NOT DETECTED [facility] Alesia Glabrata NOT DETECTED NOT DETECTED [facility] Comment: Alesia species C. albicans, C. tropicalis, C. parapsilosis, and/or C. dubliniensis can be detected, but not differentiated, in the Alesia spp. result. Trichomonas Vaginalis (TV), TMA NOT DETECTED NOT DETECTED [facility] Chlamydia Trachomatis RNA, TMA NOT DETECTED NOT DETECTED [facility] Neisseria Gonorrhoeae RNA, TMA NOT DETECTED NOT DETECTED [facility] Comment: For additional information, please refer to [email or web address] (This link is being provided for information/ educational purposes only.) 10/19/2024 2:43 PM EDT 10/20/2024 8:53 AM EDT us Suzi Conner COLOR PRINTER OPERATOR LAB AMB MICRO ORDERABLES Patsy l Result Cued [address] [place] [phone] from Last 3 Months Insurance 31 [address]Z [place] Care Teams Exhaust Equipment Operator Relationship Specialty Start Date End Date Pcp, No PCP - General General Medicine 12/29/23
[2025-01-05 13:59] VITALS: BP 106/76; PULSE 77; RESP 16; TEMP 37; O2SAT 100; BMI 25.0
--- NOTE | 2025-01-05 13:59 | AM.OFFWIN_ITS ---
Intake Vital Signs 01/05/25 13:59 Height 5 ft 0.5 in Weight 130 lb BMI 25.0 BP 106/76 Blood Pressure Location Rt brachial Position Sitting Respiration 16 Pulse 77 Pulse Source Pulse Oximeter Temp 98.6 F Pulse Oximetry (%) 100 Oxygen Delivery Method Room Air Intake Visit Reasons: EP-COLD SORE Intake Note: Pt is here today c/o cold sore Patient Tobacco Use Status: Never used Tobacco Allergies Sulfa (Sulfonamide Antibiotics) Allergy (Intermediate, Verified 01/05/25 14:00) Hives sulfamethoxazole (From Bactrim) Allergy (Intermediate, Verified 01/05/25 14:00) Hives trimethoprim (From Bactrim) Allergy (Intermediate, Verified 01/05/25 14:00) Hives Medication List - Last Reconciled 01/05/25 by Melvin Diamond MD cholecalciferol (vitamin D3) 25 mcg PO DAILY epinephrine 0.3 mg (0.3 mL) IM Q15M PRN fluoxetine 10 mg PO DAILY HPI EP-COLD SORE HPI Details pain, burning and tingling at lower lip patient requests medication for cold sores 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 [facility] Surgical History History of gastric surgery History of 2 sections Family History Maternal Grandfather Leukemia Social History Housing: Apartment Alcohol intake: current Alcohol intake frequency: holidays/special occasions only Patient Tobacco Use Status: Never used Tobacco e-Cigarette/Vaping Use: Never Used Second Hand Smoke Exposure: No service: No Current occupational status: employed Current occupation: [employer] Cognitive needs: No Hearing needs: No Vision needs: Yes (Glasses) Review of Systems Const Denies chills, Denies fatigue, Denies fever(s), Denies headache(s) and Denies weakness ENT Details: see HPI Denies dizziness and Denies headache(s) Card Denies dyspnea Resp Denies cough, Denies dyspnea, Denies wheezing and Denies other ( shortness of breath) Musc Denies numbness and Denies tingling Neuro Denies dizziness, Denies headache(s), Denies numbness, Denies tingling, Denies paresthesias and Denies weakness Psych Denies anxiety and Denies depression Endo Denies fatigue Aller/Immun Denies wheezing Physical Exam Vital Signs: Last Vital Signs Temp 98.6 F 01/05/25 13:59 Pulse 77 01/05/25 13:59 Resp 16 01/05/25 13:59 BP 106/76 01/05/25 13:59 Pulse Ox 100 01/05/25 13:59 Oxygen Delivery Method Room Air 01/05/25 13:59 BMI result Body Mass Index 25.0 Const General: no acute distress and well developed Nutritional Appearance: well nourished Orientation/consciousness: patient oriented x3 HEENT Other: small eruption under lower lip Head: Yes normocephalic and Yes atraumatic Eyes General: appearance normal, both eyes and all related structures Pupils: Equal, round and reactive pupils present EOM: EOMs intact bilaterally Resp Effort & Inspection: normal respiratory effort Neuro General: patient oriented x3 and gait normal Cranial nerves: Yes Equal, round and reactive pupils present Psych Affect: normal affect Assessment & Plan Assessment & Plan (1) Cold sore: Code(s): B00.1 - Herpesviral vesicular dermatitis Plan: small cold sore eruption under lower lip start valacyclovir and can take b.i.d. until resolved Medications: New valacyclovir 500 mg PO Q12H 28 tabs 1RF 14 days Coding Level of Care Code Est Pt Level 3 (13636) Diagnoses Cold sore B00.1
== END 2025-01-05 14:26 | disposition home or self-care (01) ==
LOC: HO.HMCWIC 13:47
PROVIDERS: Visit Provider Family Medicine
DX: B00.1 Herpesviral vesicular dermatitis (principal)

== ENCOUNTER → 2025-01-05 13:47 | Outpatient (BNVA) | payer OTHER, SELFPAY | PROVIDERS: Visit Provider Family Medicine | DX: B00.1 Herpesviral vesicular dermatitis (principal) | CPT/HCPCS: 99212 ==

== ENCOUNTER 2025-01-08 15:06 | Outpatient (AMB) | payer OTHER, SELFPAY ==
[2025-01-08 15:08] VITALS: BP 90/70; PULSE 72; TEMP 36.7; O2SAT 98; BMI 24.6
--- NOTE | 2025-01-08 15:08 | A.OFFPC_ITS ---
Vital Signs 01/08/25 15:08 Height 5 ft 0.5 in Weight 128 lb 4 oz BMI 24.6 BP 90/70 Blood Pressure Location Lt brachial Position Sitting Pulse 72 Pulse Source Pulse Oximeter Temp 98.1 F Temp Source Temporal Artery Scan Pulse Oximetry (%) 98 Oxygen Delivery Method Room Air Intake Visit Reasons: 3 month f/u Field Handyman Required: No Accompanied by: Self / Same As Patient Allergies Sulfa (Sulfonamide Antibiotics) Allergy (Intermediate, Verified 01/08/25 15:45) Hives sulfamethoxazole (From Bactrim) Allergy (Intermediate, Verified 01/08/25 15:45) Hives trimethoprim (From Bactrim) Allergy (Intermediate, Verified 01/08/25 15:45) Hives Medication List - Last Reconciled 01/08/25 by Awilda Sanchez PA-C cholecalciferol (vitamin D3) 25 mcg PO DAILY epinephrine 0.3 mg (0.3 mL) IM Q15M PRN fluoxetine 10 mg PO DAILY valacyclovir 500 mg PO Q12H 14 days Tobacco use date assessed: 09/27/24 Dental Screening Dental Screen Date: 09/27/24 Did you have a dental visit in the last 12 months?: Yes Did you have a dental problem in the last 6 months where you did not have access to dental care?: No Was dental information given to patient?: Patient has dentist HPI 3 month f/u HPI Details 29-year-old female with past medical his tory of anxiety and depression last seen 09/2024 coming in for follow up. Presenting for follow-up and counseling regarding a new diagnosis of HSV-1. The patient was diagnosed with HSV-1 at an urgent care visit about a year ago after presenting with a cyst on the arm and requesting comprehensive testing. The patient reports significant emotional distress, including feelings of depression and anxiety, and feels as though the lesions are spreading. The patient has a history of depression and anxiety, for which the patient takes fluoxetine. The fluoxetine has helped with symptoms of chest pain and morning anger. [facility] Surgical History History of gastric surgery History of 2 sections Family History Maternal Grandfather Leukemia Social History Housing: Apartment Alcohol intake: current Alcohol intake frequency: holidays/special occasions only Patient Tobacco Use Status: Never used Tobacco e-Cigarette/Vaping Use: Never Used Second Hand Smoke Exposure: No service: No Current occupational status: employed Current occupation: [employer] Cognitive needs: No Hearing needs: No Vision needs: Yes (Glasses) Female Reproductive History Menstrual control method: none Total pregnancies: 2 Full term: 2 History of abnormal pap smear: Yes Questionnaire PHQ-9 Over the last 2 weeks, how often have you been bothered by any of the following problems? 1. Little interest or pleasure in doing things: several days 2. Feeling down, depressed, or hopeless: several days 3. Trouble falling or staying asleep, or sleeping too much: more than half the days 4. Feeling tired or having little energy: several days 5. Poor appetite or overeating: not at all 6. Feeling bad about yourself - or that you are a failure or have let yourself or your family down: several days 7. Trouble concentrating on things, such as reading the newspaper or watching television: more than half the days 8. Moving or speaking so slowly that other people could have noticed. Or the opposite - being so fidgety or restless that you have been moving around a lot more than usual: not at all 9. Thoughts that you would be better off or of hurting yourself in some way: not at all Total score: 8 Depression Screening Interpretation: Positive Depression Screening Follow-up: Existing condition and New Medication prescribed Depression Screening Done: Yes Source: Developed by Drs. Jay Vergara, Chante Bhat, Bart Spangler and colleagues, with an educational ansley from [employer]. Thrive Questionnaire Date Thrive assessed: 02/24/24 I am a: Patient What is your living situation today?: I have a steady place to live Within the past 12 months, did the food you bought not last and you didn't have the money to get more?: Never true Within the past 12 months, did you worry whether your food would run out before you got money to buy more?: Never true Do you have trouble paying for medicines?: No Do you have trouble getting transportation to medical appointments?: No Do you have trouble paying your heating and electricity bill?: No Do you have trouble taking care of your child, family member or friend?: No Do you have trouble with day-to-day activities such as bathing, preparing meals, shopping, managing finances, etc.?: No Are you currently unemployed and looking for a job?: No Are you interested in more education?: Yes Please select the resources that you would like help with: None Currently or been in a relationship where the following occur: I choose not to answer THRIVE Score: 0 AUDIT C Alcohol Use Questionnaire (AUDIT-C) 1. How often do you have a drink containing alcohol?: Monthly or less 2. How many drinks containing alcohol do you have on a typical day when you are drinking?: 1 or 2 3. How often do you have six or more drinks on one occasion?: Never Total Score: 1 BARBARA-7 AMB Questionnaire BARBARA-7 Date BARBARA - 7 assessed: 09/27/24 Feeling nervous, anxious, or on edge: 1 = Several days Not being able to stop or control worryin = Several days Worrying too much about different things: 1 = Several days Trouble relaxin = Not at all Being so restless that it is hard to sit still: 0 = Not at all Becoming easily annoyed or irritable: 1 = Several days Feeling afraid as if something awful might happen: 0 = Not at all Total BARBARA-7 score (0-4 normal; 5-9 mild; 10-14 moderate; 15-21 severe): 4 Source: Developed by Drs. Jay Vergara, Chante Bhat, Bart Spangler and colleagues, with an educational ansley from [employer]. Review of Systems Const Denies body aches, Denies chills, Denies fever(s), Denies headache(s) and Denies poor appetite Eyes Reports no additional complaints ENT Denies dizziness and Denies headache(s) Card Denies chest pain, Denies lightheadedness and Denies dyspnea Resp Denies dyspnea GI Denies abdominal pain, Denies nausea and Denies vomiting Reports no additional complaints Musc Reports no additional complaints and Denies abnormal gait Skin/Breast Reports system reviewed and no additional complaints, except as documented Neuro Denies abnormal gait, Denies dizziness and Denies headache(s) Psych Reports no additional complaints Physical exam (Primary Care) Vital Signs: Last Vital Signs Temp 98.1 F 01/08/25 15:08 Pulse 72 01/08/25 15:08 BP 90/70 01/08/25 15:08 Pulse Ox 98 01/08/25 15:08 Oxygen Delivery Method Room Air 01/08/25 15:08 BMI result Body Mass Index 24.6 Tobacco/Smoking Status: Tobacco use Status Tobacco use date assessed 09/27/24 01/08/25 15:16 Patient Tobacco Use Status Never used Tobacco 01/08/25 15:16 e-Cigarette/Vaping Use Never Used 01/08/25 15:16 PHQ-9: PHQ-9 Score PHQ-9: Total score 8 01/08/25 16:13 Depression Screening Interpretation: Positive Depression Screening Follow-up: Existing condition and New Medication prescribed Thrive Assessment: Date of Thrive Assessment Date Thrive assessed 02/24/24 01/08/25 15:16 Currently or been in a relationship where the following occur: I choose not to answer Const General: cooperative, healthy appearing, comfortable and no acute distress Orientation/consciousness: patient oriented x3 HENMT Other: No vesicular lesions on the vermilion border Head: Yes normocephalic Ears: hearing grossly normal bilaterally General nose exam: Normal external nose present Resp Effort & Inspection: normal respiratory effort Cardio Rate: regular rate Neuro General: patient oriented x3 Gait exam (Neuro): Normal gait present Extrem General: Yes normal to inspection, Yes full ROM and No edema Psych Affect: normal affect Attitude: cooperative Insight: Good insight present (Psych) Judgement: Good judgement present (Psych) Coding Level of Care Code Est Pt Level 3 (20404) Diagnoses Anxiety F41.9 Depression F32.A HSV (herpes simplex virus) infection B00.9 Assessment & Plan Assessment & Plan (1) Anxiety: Code(s): F41.9 - Anxiety disorder, unspecified Category: Medical Plan: The patient's depression and anxiety have been significantly exacerbated by the HSV-1 diagnosis, manifesting as distress, feelings of being 'dirty,' anger, and sleep disruption. The patient is currently on a low dose of fluoxetine 10 mg, which has resolved previous chest pain and anger but is insufficient for current mood symptoms, particularly in the afternoon and evening. The recent time change may also be a contributing factor. The plan is to increase the fluoxetine dosage to 20 mg daily to better manage symptoms of depression and anxiety. A work note will be provided for tomorrow. A telehealth follow-up is scheduled in three months to reassess symptoms and medication effectiveness. (2) Depression: Code(s): F32.A - Depression, unspecified Category: Medical Plan: See above (3) HSV (herpes simplex virus) infection: Code(s): B00.9 - Herpesviral infection, unspecified Category: Medical Plan: The patient presents with significant distress following a recent diagnosis of HSV-1. The patient has no active lesions at present. Extensive education was provided regarding the nature of HSV-1, including its high prevalence, latency, and triggers such as stress and illness. It was emphasized that the virus is contagious only during active outbreaks when fluid-filled lesions are present. Management strategies were discussed, including abortive therapy at the onset of symptoms. The plan is for the patient to complete the current course of valacyclovir prescribed by urgent care. An as-needed prescription for valacyclovir 1-gram tablets will be provided to take twice daily for three days at the first sign of an outbreak. The use of [id number] Abreva is also appropriate. The patient was instructed on preventive measures during outbreaks, such as avoiding sharing personal items and using barrier protection during sexual contact. Plan This note was constructed using voice recognition software. While every effort has been made to ensure accuracy and chief hospital administrator, still areas may have been included sometimes these areas may affect the content or meeting of the given symptoms. Total time spent caring for the patient today was 30 minutes. This includes time spent before the visit reviewing the chart, time spent during the visit, and time spent after the visit and documentation. Patient was informed and verbally consented to the use of an ambient scribe for clinic note documentation during this visit. Medications: New fluoxetine 20 mg PO DAILY 90 caps 0RF Discontinued fluoxetine Discontinued Reason: Patient no longer taking 10 mg PO DAILY 90 caps 0RF
--- OUTSIDE RECORDS SUMMARY | 2025-01-08 18:48 | XMS_ITS | Data Portability ---
Author Organization [facility] [address] Address [address] [place] [address] Assessment No assessment recorded. Plan of Treatment Reminders Order Date Submit Date Provider Last Modified By Organization Details Last Modified Time Details Appointments None recorded. Lab hepatitis B surface Ab, quantitativ e, serum 2022 023 [facility], [facility] [place], [address], 3 08:08:38 measles + mumps + rubella virus IgG panel, QN, serum or plasma 2022 023 [facility], [address] [place], [address], 3 08:08:37 varicella zoster virus IgG Ab, QN, IA, serum 2022 023 [facility], [facility] [place], [address], 3 08:08:38 Referral None recorded. Procedures None [...] 0.99 Immun e >0.99 Not Available [facility] ([facility]) [address] [facility] [address], [place], [address], 06/23/2022 08:08:37 06/23/19 23 06/23/2022 MEASL ES/MU MPS/R UBELL A IMMUN ITY measles antibodies, IgG 155.0 AU/mL immune >16.4 Negat inessa <13.5 Equiv ocal 13.5 - 16.4 Posit inessa >16.4 Prese nce of antib odies to Rubeo la is presu mptiv e evide nce of immun ity excep t when acute infec tion is suspe cted. Not Available [facility] ([facility]) [address] [facility], [place], [address], 06/23/2022 08:08:37 06/23/1906/23/2022 MEASL ES/MU MPS/R UBELL A IMMUN ITY mumps abs, IgG 100.0 AU/mL immune >10.9 Negat inessa <9.0 Equiv ocal 9.0 - 10.9 Posit inessa >10.9 A posit inessa resul t gener ally indic ates past expos ure to Mumps virus or previ ous vacci natio n. Not Available [facility] ([facility]) [address] [place], [address], 06/23/2022 08:08:37 06/23/1906/23/2022 HEPAT ITIS B SURF AB QUANT hepatitis B surf Ab quant 48.8 mIU/m L immuni ty>9.9 Statu s of Immun ity Anti- HBs Level ----- ----- ----- --- ----- ----- ---- Incon siste nt with Immun ity 0.0 - 9.9 Consi stent with Immun ity >9.9 Not Available [facility] ([facility]) [address] [facility], [place], [address], 06/23/2022 08:08:38 06/23/19 23 06/23/2022 VARIC TYRELL- [...] stage of disea se. Not Available [facility] ([facility]) [address] [facility] [address], [place], [address], 06/23/2022 08:08:38 Result Notes None recorded. Procedures Surgical History Date Name Laterality Status Provider Name and Address Organization Details Recorded Time 08/05/19 23 [facility] Rapid 5 or 10 panel Template completed IRIS TERRELL PA - [facility] 08/04/2022 12:35:21 06/23/19 23 [facility] Send Out Template NON DOT completed Floresita [place] PA - [facility] 06/22/2022 13:17:14 06/23/19 23 PSC - Venipuncture Template completed Floresita [place] - [facility] 06/22/2022 12:12:45 Imaging [...] ICD10 Code Diagnosis IMO Codes Diagnosis Note [id number] [address] [place] [address] 03/21/2020 08:08:13 03/21/2020 09:11:08 [id number] [address] [facility] [address] [place] [address] 03/30/2017 14:09:46 03/30/2017 15:02:00 [id number] Ana Lux [place] [address] [place] [address] 06/22/2022 09:13:20 06/22/2022 13:37:46 Tuberculosis screening [id number] Z11.1 History an d physical examination, occupation [id number] Z02.1 History an d physical examination, pre-employment [id number] Z02.1 [id number] L[place] Luevano [place] [address] [place] [address] 08/04/2022 12:19:45 08/04/2022 13:21:47 History and physical examination, occupation [id number] Z02.1 Health Concerns Section Related Observation LastModified by Organization Detai ls LastModified Time None Recorded Concern Status LastModified by Organization Details LastModified Time None Recorded Advance Directives Directive None Recorded Payers Insurance Date Sequence Insurance Name Policy Number Policy Logan Covered Member ID Logan Member ID Guarantor Name 08/04/2022 1 [facility] (O) VASU Dewitt [id number] Iqra Dewitt 06/22/2022 OC-ESCREEN Iqra Dewitt [id number] Iqra Dewitt 08/04/2022 OC-ESCREEN Iqra Dewitt [facility] Iqra Dewitt OBGyn Episode No OBEpisode recorded.
--- OUTSIDE RECORDS SUMMARY | 2025-01-08 18:48 | XMS_ITS | Clinical Summary ---
Author Organization [facility] Address [address] [place] [address] Care Team Providers Care Chef & Owner Name Role Phone Pcp, No Primary Care [...] Description 10/19/2024 2:05 PM EDT Office Visit [facility] [address] [place] [address] Keegan Tanner, Suzi Falk, SCRAP BALER Screening examination for STI (Primary Dx); Vaginal [...] Procedure Name Priority Date/Time Associated Diagnosis Comments [facility] ADVANCED VAGINITIS PLUS, TMA Routine 10/19/2024 2:43 PM EDT Screening examination for STI Vaginal irritation from Last 3 Months Results * [facility], TMA (10/19/2024 2:43 PM EDT) [facility] Adv Bacterial Vaginosis (BV), TMA NEGATIVE NEGATIVE App[employer]ud Alesia Species NOT DETECTED NOT DETECTED Applaud Alesia Glabrata NOT DETECTED NOT DETECTED Applaud Comment: Alesia species C. albicans, C. tropicalis, C. parapsilosis, and/or C. dubliniensis can be detected, but not differentiated, in the Alesia spp. result. Trichomonas Vaginalis (TV), TMA NOT DETECTED NOT DETECTED Applaud Chlamydia Trachomatis RNA, TMA NOT DETECTED NOT DETECTED Applaud Neisseria Gonorrhoeae RNA, TMA NOT DETECTED NOT DETECTED Applaud Comment: For additional information, please refer to [email or web address] (This link is being provided for information/ educational purposes only.) 10/19/2024 2:43 PM EDT 10/20/2024 8:53 AM EDT us Suzi Conner SCRAP BALER LAB AMB MICRO ORDERABLES Patsy l Result [employer] [address] [place] [phone] from Last 3 Months Insurance [id number] [address]Z [place] Care Teams Chef & Owner Relationship Specialty Start Date End Date Pcp, No PCP - General General Medicine 12/29/23
--- OUTSIDE RECORDS SUMMARY | 2025-01-08 18:48 | XMS_ITS | Clinical Summary ---
Author Organization [facility] Address [address] [place] [address] Phone Care Team Providers Care Licensed Occupational Therapist Name Role Phone Vilma Mishra MD Primary Care Provider [phone] Immunizations Immunization Administration Dates Next Due COVID-19 [...] topic Medical Devices Not on file Insurance [employer] [facility] ACO [place] [id number] Care Teams Licensed Occupational Therapist Relationship Specialty Start Date End Date Vilma Mishra MD [address] [place] [id number] PCP - General Internal Medicine 09/29/22 Additional Source Comments The information contained in this document represents components of the legal health record. It is not the complete legal health record.[facility]
--- OUTSIDE RECORDS SUMMARY | 2025-01-08 18:48 | XMS_ITS | Clinical Summary ---
Author Organization [facility] Address [address] [place] [address] Phone Care Team Providers Care Motor And Controls Tester Name Role Phone Vilma Mishra MD Primary Care Provider [phone] Allergies Active Allergy Reactions Criticality Noted Date Comments [place] 08/07/2021 Other Reaction(s): Rash/Dermatitis Apple Swelling 05/02/2019 [...] (Infanrix) 6wks to less than 7yo ,03/27/1996,1994,09/30,1994 [id number] (Pentacel) 2mo to less than 5yo 01/19/1999,03/27/1996,1994,09/25,1994 [...] Known Problems Daughter Diabetes Father Arthritis, CAD, NM, hypercholesterolemia, depression, anxiety, hypertension Leukemia Maternal Grandfather [...] Maintenance Results * Depression Screening (05/20/2023) Pathologist [facility] Depression Screening abstracted Historical Provider HEALTH MAINTENANCE Final Result * Lipid panel (06/16/2021) [facility] LDL/HDL Ratio 4 0 - 4 Triglycerides 142 0 - 150 mg/dL Cholesterol 169 0 - 200 mg/dL HDL 44 >=40 mg/dL LDL Cholesterol 97 0 - 100 mg/dL Blood Venous blood specimen / Unknown Historical Provider LAB BLOOD ORDERABLES Patsy l Result * Cervical Cancer Screening: HPV (07/24/2020) [facility] Cervical Cancer Screening: HPV no interpretation , abstracted us Historical Provider HEALTH MAINTENANCE Final Result from Last 3 Months or Most Recently Relevant to Health Maintenance Care Teams Motor And Controls Tester Relationship Specialty Start Date End Date Vilma Mishra MD [address] [place] [phone] PCP - General 12/23/21
--- OUTSIDE RECORDS SUMMARY | 2025-01-08 18:48 | XMS_ITS | Clinical Summary ---
Author Organization [facility] Address [address] [facility] [address] [place] [address] Care Team Providers Care Credit Administration Specialist Name Role Phone Unavailable Primary Care Provider [...]
== END 2025-01-08 16:18 | disposition home or self-care (01) ==
LOC: HO.HMCH 15:07
DX: F41.9 Anxiety disorder, unspecified (principal); F32.A Depression, unspecified; B00.9 Herpesviral infection, unspecified

== ENCOUNTER → 2025-01-08 15:06 | Outpatient (BNVA) | payer OTHER, SELFPAY | DX: F41.9 Anxiety disorder, unspecified (principal); F32.A Depression, unspecified; B00.9 Herpesviral infection, unspecified; Z13.31 Encounter for screening for depression | CPT/HCPCS: 96127; 99212 ==